=== PATIENT | female | born 1985 | race Two or more races ===

== ENCOUNTER → 2022-12-03 13:57 | Outpatient (BNVA) | payer OTHER, SELFPAY | PROVIDERS: PCP Internal Medicine; Visit Provider Physician Assistant Surgical ==

== ENCOUNTER 2022-12-30 13:57 | Outpatient (AMB) | payer OTHER, SELFPAY ==
--- NOTE | 2022-12-30 14:14 | MHC.OFFVISWM ---
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 She heard about our program from a friend. Her goal is to lose weight and achieve a healthy lifestyle. She reports first being concerned about her weight lifelong, highest weight to date was 243. Current weight is 231 pounds with a BMI of 40.3. She has tried multiple methods of weight loss including fad diets, exercise without permanent results. She lives with her and children. She currently does not work. Hx of multiple blood clots, first after a trauma 13 years ago, then 4 more times over the years including a clot while taking lovenox. She did undergo righht total hip replacement in July of this year with lovenox bridge without clotting. She is followed by hematology Dr Oscar at [facility]. She wakes at:?7 am, and goes to bed at?10 pm. Dinner is at 5 pm. Breakfast: skip or HB eggs AM snack: nuts and chips Lunch: raw veg w cottage cheese and mustars, air fried sausages PM snack: nuts and chips Dinner: fish, veg, brown rice, quinoa, chicken After dinner: chocolate, chips Other snacks: divehi ice Liquids: 120 oz water, no soda, no juice Alcohol/marijuana/tobacco intake: none Exercise: walking outside, 45 minutes, gym membership at [employer] GERD score: 10 POLYL score: 0 ESS score: 7 QOL score: 97 PFSH Surgical History History of right hip replacement Hx of section Family History Mother No problems noted. Father No problems noted. Sister Thyroid disease Brother No problems noted. Brother No problems noted. Son No problems noted. Son No problems noted. Daughter No problems noted. Daughter Epilepsy Social History Alcohol intake: never Patient Tobacco Use Status: Never used Tobacco Review of Systems Const All systems reviewed & are unremarkable except as noted in HPI and below Physical Exam Vital Signs: Last Vital Signs Temp 97.8 F 12/30/22 14:18 Pulse 78 12/30/22 14:18 BP 120/66 12/30/22 14:18 Pulse Ox 99 12/30/22 14:18 Oxygen Delivery Method Room Air 12/30/22 14:18 BMI result Body Mass Index 40.3 Const General: cooperative, healthy appearing and no acute distress Orientation/consciousness: patient oriented x3 HEENT Head: Yes normal to inspection Ears: hearing grossly normal bilaterally General nose exam: Normal external nose present Face and sinus: Yes normal facial exam Eyes General: appearance normal, both eyes and all related structures Resp Effort & Inspection: normal respiratory effort Auscultation: clear to auscultation bilaterally Cardio Rate: regular rate Rhythm: regular rhythm Heart sounds: S1 normal heart sound present and S2 normal heart sound present GI Inspection: Yes normal to inspection, No distended and Yes obesity Palpation (GI): Soft to palpation, nontender and no guarding Auscultation: normal bowel sounds Skin General skin exam: no rashes or lesions noted Neuro General: patient oriented x3 Extrem General: No edema Psych Appearance: grossly normal Mental Status: mental status grossly normal Speech and movement: Normal speech and movement present Affect: normal affect Attitude: cooperative Assessment & Plan Assessment & Plan (1) Morbid obesity: Code(s): E66.01 - Morbid (severe) obesity due to excess calories Plan: This is a?37 yo female who will start our SWL program to prepare for bariatric surgery.? Blood work, h pylori , CXR, ECG, Abd US and UGI have been ordered. She is being scheduled for RD and BH initial consultations. She will start SWL classes and watch the first three videos before her next appointment. ? Adequate sleep of 7-8 hours per night discussed, awakening at 7 am and going to bed at 10 pm ? Purchase body composition analyzer scale (Charlee nicolas or Donovan recommended) and check weight weekly. The best time to do this is first thing in the morning after going to the bathroom. 1. Nutritional counseling: Be sure to careful read the number of scoops per shake Start with 3 Premier Protein shakes ([employer], [employer], [employer]), (1 scoop in 8 oz low fat unsweetened almond milk or water each) First shake at 8am-10am, Second shake at 12am-2pm 1 protein bar (Fulfil bars at [employer], [facility], or [employer]) at 3pm-5pm. Dinner at 5 pm (8 forks of protein and 8 forks of salad/vegetables). Meal to include lean meat (beef, fish, pork, turkey, chicken), cooked vegetables or a salad with olive oil and/or fruits (berries, pears, apples, kiwi). Avoid salt, breads, potatoes, rice, pasta, desserts. Another shake with 1 scoop in 8 oz unsweetened almond milk at 7pm-9pm. Try to drink 64 oz of water daily and avoid soda and juices. ?2. Each shake would be drunk slowly, like coffee in a period of 2 hours. ?3. Cut each bar in 4 pieces and eat each piece in 30 min ?to make each bar last 2 hours. ?4. I emphasized the importance of measuring accurately the food portion and measure it carefully when serving the food on the plate ?5. The meal portions include 8 full-size forks of meat and 8 full-size forks of salad. You always eat the meat portion but you can replace up to half of the forks of salad/vegetables with rice, potatoes or pasta, or a fruit ?if you like. The less you do it the better weight loss will be. ?6. One full-size fork is what can be scooped on the fork without falling aside and not what can be bit with the fork. Use regular forks like those you find in a typical restaurant. ?7.? Please send me weight measurements as soon as possible and then once a week. Always include your diet and exercise plan. Alternatively come weekly at the office for weight checks and send me the measurements. ?8. Exercise counseling: Begin by watching a stretching for beginners video. Start slowly and begin to stretch your muscles. You should do this before and after each exercise session to prevent injury. Please go to [employer] [facility] gym near your home. Ask the food processing plant manager or one of the trainers how to use the machines if you are unfamiliar with them. Start elliptical with a resistance of 2. Increase resistance by 1 every 3 min to your most comfortable resistance with a max resistance of 8. Reduce the resistance by 1 every 3 minutes back down to 2 and repeat cycles for 300 calories. Alternatively, start treadmill with a speed of 3.0 and incline of 0, increasing incline by 1 every 3 minutes to the highest comfortable level (max 6 for now) then decrease in the same fashion. Repeat process to a goal of 300 calories. Goal of 2000 calories burned or more weekly. You may also consider use of the stationary bike. The easiest would be to chose the fat-burn or interval training program on the machine and do this until you reach the 300 calorie goal. Alternatively, you can manually adjust the resistance in a similar fashion as mentioned above, (resistance of 2-8 with a goal speed of 12 mph). Tracking calories is essential. 9. Alternatively start walking outside daily, tracking calories with a goal of 300 calories per day, daily. You can download the [employer] which can track your time, distance and calories while walking outside. You press start in the ju[employer] when you start and then stop when you are finished. 10.? It is important to avoid for at least 18 months postoperatively and it has been discussed at the information session 11. Please get labs, EKG and chest X-Ray within 1 week. 12. Discussed and answered all questions regarding?obtained consent to participate in the [facility]?Registry. 13. Please follow the diet plan exactly, without any change. If you do not like something about the plan or you feel hungry, you need to communicate with me so I can help you revise the plan. You should not change the plan yourself. Text me at [phone] 14. Goal is to lose at least 12 pounds in the first month 15. Goal is to lose 10% of your weight before surgery, which is about 23 lbs. Ultimate weight goal: 208 lbs before surgery 16. Please contact your bar tender at [facility], Dr Oscar and have her fax over her notes to our office at [phone] Patient is morbidly obese and is not considered stable at this time.?I spent a total of 70 minutes reviewing/updating records, examining the patient and counseling the patient on weight management as detailed above. (2) Hypercoagulable state: Code(s): D68.59 - Other primary thrombophilia Plan: Get notes from her bar tender Dr Oscar Orders: Orders Vitamin B12 and Folate Today E66.01 - Morbid (severe) obesity due to excess calories Comprehensive Met. Panel Today E66.01 - Morbid (severe) obesity due to excess calories C Reactive Protein Today E66.01 - Morbid (severe) obesity due to excess calories Ferritin Today E66.01 - Morbid (severe) obesity due to excess calories Hemoglobin A1c Today E66.01 - Morbid (severe) obesity due to excess calories Insulin Today E66.01 - Morbid (severe) obesity due to excess calories IRON PROFILE Today E66.01 - Morbid (severe) obesity due to excess calories Lipid Panel Today E66.01 - Morbid (severe) obesity due to excess calories PTHI Today E66.01 - Morbid (severe) obesity due to excess calories TSH reflex Free T4 Today E66.01 - Morbid (severe) obesity due to excess calories Vitamin A Today E66.01 - Morbid (severe) obesity due to excess calories Vitamin B1 Today E66.01 - Morbid (severe) obesity due to excess calories Vitamin D 25-OH Total Today E66.01 - Morbid (severe) obesity due to excess calories Zinc Today E66.01 - Morbid (severe) obesity due to excess calories ECG 12 lead EKG Today E66.01 - Morbid (severe) obesity due to excess calories FL upper GI w air Today E66.01 - Morbid (severe) obesity due to excess calories Complete Blood Count Auto Diff Today E66.01 - Morbid (severe) obesity due to excess calories H Pylori Breath Test Today E66.01 - Morbid (severe) obesity due to excess calories US abdomen comp w elastography Today E66.01 - Morbid (severe) obesity due to excess calories XR chest 2V Today E66.01 - Morbid (severe) obesity due to excess calories Referrals Behavioral Health Referral E66.01 - Morbid (severe) obesity due to excess calories Nutrition/Dietitian Referral E66.01 - Morbid (severe) obesity due to excess calories Coding Level of Care Code New Pt Level 5 (20032) Diagnoses Morbid obesity E66.01 Hypercoagulable state D68.59 Time Spent (min) 70
[2022-12-30 14:18] VITALS: BP 120/66; PULSE 78; TEMP 36.6; O2SAT 99; BMI 40.3
== END 2022-12-30 15:28 | disposition home or self-care (01) ==
PROVIDERS: PCP Internal Medicine; Visit Provider Physician Assistant Surgical
DX: E66.01 Morbid (severe) obesity due to excess calories (principal); Z68.41 Body mass index [BMI] 40.0-44.9, adult; D68.59 Other primary thrombophilia
CPT/HCPCS: 99205

== ENCOUNTER → 2022-12-30 13:57 | Outpatient (BNVA) | payer OTHER, SELFPAY | PROVIDERS: PCP Internal Medicine; Visit Provider Physician Assistant Surgical | DX: E66.01 Morbid (severe) obesity due to excess calories (principal); D68.59 Other primary thrombophilia; Z68.41 Body mass index [BMI] 40.0-44.9, adult | CPT/HCPCS: 99202 ==

== ENCOUNTER 2023-01-14 09:43 | Outpatient (REF) | payer OTHER, SELFPAY ==
--- NOTE | ~2023-01-14 | XR_ITS ---
EXAMINATION: XR CHEST 2 VIEW CLINICAL INFORMATION: Morbid obesity COMPARISON: None TECHNIQUE: PA and lateral views of the chest obtained. FINDINGS: The lungs are clear. There are no pleural effusions. The cardiomediastinal silhouette is normal. XR/XR chest 2V IMPRESSION: No active cardiopulmonary disease.
--- NOTE | 2023-01-14 09:54 | ECG_ITS ---
Test Reason : CP Blood Pressure : / mmHG Vent. Rate : 070 BPM Atrial Rate : 070 BPM P-R Int : 170 ms QRS Dur : 090 ms QT Int : 408 ms P-R-T Axes : 041 -06 016 degrees QTc Int : 440 ms Normal sinus rhythm Normal ECG No previous ECGs available Referred By: William Gutiérrez Electronically Signed By:GRANT SCHROEDER
[2023-01-14 10:19] LABS: MANUAL DIFF FLAG NO
[2023-01-14 10:38] LABS: Basophils Absolute Auto 0.1 X10*3/uL (0.0-0.2); Basophils Percent Auto 1.3 % (0-2); Eosinophils Absolute Auto 0.1 X10*3/uL (0.0-0.4); Eosinophils Percent Auto 1.3 % (0-4); Hematocrit 39.6 % (37.0-47.0); Hemoglobin 13.5 g/dl (12.0-16.0); Imm Gran Abs Auto 0.01 X10*3/uL (0.00-0.03); Imm Gran Pct Auto 0.3 % (0.0-0.4); Lymphocytes Absolute Auto 1.6 X10*3/uL (1.2-4.9); Lymphocytes Percent Auto 41.5 % (20-40); Mean Corpuscular HGB Conc 34.1 g/dl (31.0-35.0); Mean Corpuscular Hemoglobin 31.6 pg (27.0-33.0); Mean Corpuscular Volume 92.7 fL (80.0-98.0); Monocytes Absolute Auto 0.3 X10*3/uL (0.1-1.2); Monocytes Percent Auto 7.6 % (2-11); Neutrophils Absolute Auto 1.9 x10*3/uL (2.0-8.3); Platelet Count 282 X10*3/uL (160-400); Red Blood Count 4.27 X10*6/uL (4.20-5.50); Red Cell Distribution Width 12.6 % (11.0-16.0)
[2023-01-14 10:50] LABS: Estimated Average Glucose 103 mg/dL; Hemoglobin A1c % 5.2 %
[2023-01-14 11:13] LABS: Alanine Aminotransferase 8 U/L (0-31); Albumin Level 4.5 g/dL (3.5-5.0); Alkaline Phosphatase 74 U/L (39-117); Anion Gap 12 (12-20); Aspartate Amino Transferase 15 U/L (5-31); Bilirubin Total 0.7 mg/dL (0.0-1.0); Blood Urea Nitrogen 15 mg/dL (9-16); C Reactive Protein 0.35 mg/dL (< or = 0.50); Calcium 9.7 mg/dL (8.4-10.2); Carbon Dioxide 28 mmol/L (22-29); Chloride 104 mmol/L (96-108); Cholesterol 222 mg/dL; Estimated Glomerular Filt Rate > 60; Glucose Random 98 mg/dL (60-115); HDL Cholesterol 32 mg/dL; Iron 67 mcg/dL (30-160); LDL Cholesterol Calculated 160 mg/dl; Percent Iron Saturation 23 % (15-50); Sodium 140 mmol/L (135-145); Total Iron Binding Capacity 292 mcg/dL (228-428); Total Protein 7.9 g/dL (6.5-8.0); Triglycerides 152 mg/dL; Unsaturated Iron Binding 225 ug/dL
[2023-01-14 11:44] LABS: Ferritin 69 ng/mL (10-122); TSH reflex Free T4 3.19 uIU/mL (0.32-4.0); Vitamin D 25-OH Total 23.5 ng/mL (>30)
[2023-01-14 11:45] LABS: Folate 9.1 ng/mL (> or = 4.0); Vitamin B12 279 pg/mL (200-900)
[2023-01-14 11:54] LABS: Insulin 14 uU/mL (2-29)
[2023-01-16 23:34] LABS: Calcium (PTHI) 9.6 mg/dL (8.6-10.2); PTHI 31 pg/mL (16-77)
[2023-01-17 18:28] LABS: Zinc 83 mcg/dL (60-130)
[2023-01-19 11:59] LABS: Vitamin B1 6 nmol/L (8-30)
[2023-01-20 04:19] LABS: Vitamin A 61 mcg/dL (38-98)
[2023-01-22 14:36] LABS: H Pylori Breath Test Negative (Negative)
== END 2023-01-14 09:44 | disposition home or self-care (01) ==
LOC: HO.LAB 09:43
PROVIDERS: PCP Internal Medicine; Visit Provider Physician Assistant Surgical
DX: E66.01 Morbid (severe) obesity due to excess calories (principal)
CPT/HCPCS: 36415; 71046; 80053; 80061; 82306; 82607; 82728; 82746; 83013; 83036; 83525; 83540; 83970; 84425; 84443; 84590; 84630; 85025; 86140; 93005; 97802; 99211

== ENCOUNTER 2023-01-14 10:31 | Outpatient (AMB) | payer OTHER, SELFPAY ==
--- NOTE | 2023-01-14 10:28 | A.OFFVIS_ITS ---
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 She started last week. She had CUBE MACHINE TENDER appt, then went on vacation. started when she got back. cauliflower rice, fish, salmon, chicken - picky about meat, mostly likes seafood. Exercise: none yet SWL online classes: completed, scored very well. reviewed. Previous weight loss methods attempted IF, keto, exercise. lost a few pounds, then would stop seeing results Dietary counseling reduction Who buys your food self Who prepares/cooks your food self Meal frequency regular: dinner and snacks and irregular: breakfast and lunch Lifestyle Reads food labels Yes Food frequency Dairy: daily, Fruit: daily, Vegetables: daily, Grains/pasta/breads/cereal (carbs): daily, Meats/poultry/fish (protein): daily, Meat substitutes/nuts/seeds/legumes: daily (snacked on nuts ), Processed foods/meats: daily, Water: daily, Soda: never, Juice: never and Coffee: several times weekly Diagnosis Nutrition problem #1 overweight/obesity As related to (etiology) #1 excess energy intake and physical inactivity As evidenced by (sign/symptom) #1 high BMI Monitoring/Goals Nutrition problem monitoring total energy intake, level of knowledge/skill, total PRO intake, total CHO intake and weight Outcome progress progressing Learning/Education Stages of change action Educational materials provided Yes Most Recent Diabetes Results: Cholesterol 222 mg/dL 01/14/23 HDL Cholesterol 32 mg/dL 01/14/23 Triglycerides 152 mg/dL 01/14/23 Creatinine 0.92 mg/dL (0.5-1.4) 01/14/23 Blood Urea Nitrogen 15 mg/dL (9-16) 01/14/23 Sodium 140 mmol/L (135-145) 01/14/23 Potassium 4.0 mmol/L (3.3-5.1) 01/14/23 Chloride 104 mmol/L (96-108) 01/14/23 Carbon Dioxide 28 mmol/L (22-29) 01/14/23 Calcium 9.7 mg/dL (8.4-10.2) 01/14/23 AST 15 U/L (5-31) 01/14/23 ALT 8 U/L (0-31) 01/14/23 Total Protein 7.9 g/dL (6.5-8.0) 01/14/23 Albumin 4.5 g/dL (3.5-5.0) 01/14/23 PFSH Surgical History History of right hip replacement Hx of section Family History Mother No problems noted. Father No problems noted. Sister Thyroid disease Brother No problems noted. Brother No problems noted. Son No problems noted. Son No problems noted. Daughter No problems noted. Daughter Epilepsy Social History Alcohol intake: never Patient Tobacco Use Status: Never used Tobacco Assessment & Plan Assessment & Plan (1) Morbid obesity: Code(s): E66.01 - Morbid (severe) obesity due to excess calories Patient Instructions: pt will be seen again to offer support and guidance if needed. will likely be cleared if staying consistent . f/u 02/25 11am video Coding Level of Care Code Nutr Indiv Intake (67442) Diagnoses Morbid obesity E66.01 Time Spent (min) 30
== END 2023-01-14 11:10 | disposition home or self-care (01) ==
PROVIDERS: PCP Internal Medicine; Visit Provider Dietitian, Registered
DX: E66.01 Morbid (severe) obesity due to excess calories (principal)

== ENCOUNTER 2023-01-23 08:04 | Outpatient (AMB) | payer OTHER, SELFPAY ==
--- NOTE | 2023-01-23 10:53 | MHC.OFFVISWM ---
Intake VS Expanded 01/23/23 11:14 Height 5 ft 3.5 in Weight 227 lb BMI 39.6 Body Fat 118 Body Fat Percentage 52 Free Fat Mass 109.2 Visceral Mass 21 Water Mass 74.9 Intake Visit Reasons: TV Follow Up/William Allergies No Known Allergies Allergy (Verified 01/23/23 10:53) Medication List - Last Reconciled 01/23/23 by Malik Pollard MD albuterol sulfate 90 mcg/actuation 2 puffs inhalation Q6H PRN cholecalciferol (vitamin D3) 125 mcg PO DAILY 90 days cyanocobalamin (vitamin B-12) 500 mcg PO DAILY 90 days rivaroxaban (Xarelto) 10 mg PO DAILY thiamine HCl (vitamin B1) 100 mg PO DAILY 90 days HPI TV Follow Up/William HPI Details Start time: 10.42am, End time: 11.29am ?I spent 42 minutes speaking with the patient on the phone plus an additional 5 minutes reviewing and updating records for a total of 47 minutes HPI Comments History of Present Illness Details Overall weight loss: 4.6lbs, or 2% TBWL Is doing 2 Premier Protein shakes (1 scoop in 8 oz low fat unsweetened almond milk or water each) at 8am-10am, 12pm-2pm 1 protein bar (Ful[employer] bars) at 3pm-5pm, dinner at 5 pm (8 forks of protein and 8 forks of salad/vegetables) and one more shake at 7pm-9pm Exercise: Gym x3-4/week doing treadmill for 25-30min and some weight exercises PFSH Medical History (Updated 01/23/23 @ 11:19 by Malik Pollard MD) Asthma Back pain Pulmonary embolism Surgical History History of right hip replacement Hx of section Family History Mother No problems noted. Father No problems noted. Sister Thyroid disease Brother No problems noted. Brother No problems noted. Son No problems noted. Son No problems noted. Daughter No problems noted. Daughter Epilepsy Social History Alcohol intake: never Patient Tobacco Use Status: Never used Tobacco Assessment & Plan Assessment & Plan (1) Hypercoagulable state: Code(s): D68.59 - Other primary thrombophilia (2) Asthma: Code(s): J45.909 - Unspecified asthma, uncomplicated (3) Obesity: Code(s): E66.9 - Obesity, unspecified Plan: 1. Plan for lap sleeve gastrectomy. If diaphragmatic or ventral hernias are present at time of surgery, these will be repaired laparoscopically as well. Risks and complications were discussed in detail including possible conversion to an open procedure, anastomotic leak, bleeding requiring transfusion, small bowel obstruction, , DVT and pulmonary embolism, cardiac, or pulmonary complications, as long-term complications such as anastomotic ulcer, insufficient weight loss and vitamin deficiencies. I emphasized the importance of close follow-up, adherence to instructions and good communication. 2. Change nutritional plan to 1 Premier Protein shake (1 scoop in 8 oz low fat unsweetened almond milk or water each) at 8am-10am, one bag of pea protein crisps at 11am-1pm, another Premier protein shake (1 scoop in 8oz almond milk) at 2pm-4pm, dinner at 5 pm (8 forks of protein and 8 forks of salad/vegetables) and 1 protein bar (Ful[employer] bars) at 7pm-9pm. 3. Exercise: exercise daily either at the Gym or at home. Start treadmill with an incline of 2.0 and speed of 3.0. Increase incline by 1 every 3 min to a max incline of 8.0, stay 3min at 8.0 and then return to 2.0 and repeat same steps until calorie goal is met. Goal is to burn 2000 calories per week on exercise, which means either 300 calories daily, or 400 calories 5 days per week, or 500 calories 4 days per week, or 650 calories 3 days per week. 4. Alternatively start stationary bike at a resistance level of 4.0 Increase level by 1.0 every 3 min to a max level of 10.0. Stay at this level for 3 min and then return to level 4.0 and repeat same steps until 300 calories are burned. Velocity target is 12mph and heart rate is 145 bpm. 5. Send me weight measurements weekly on Fridays (4) BMI 39.0-39.9,adult: Code(s): Z68.39 - Body mass index [BMI] 39.0-39.9, adult Orders: Orders Cardiolipin Antibodies Today D6.59 - Other primary thrombophilia C Reactive Protein Today D68.59 - Other primary thrombophilia Anti-Thrombin III Activity Today D6.59 - Other primary thrombophilia Factor V Leiden Today D68.59 - Other primary thrombophilia Lupus Anticoagulant Panel Today D6.59 - Other primary thrombophilia Protein C Activity Reflex Ag Today D6.59 - Other primary thrombophilia Protein S Activity reflex Ag Today D68.59 - Other primary thrombophilia Telehealth Telehealth Location of provider rendering services: practice address Location of patient: address on file Patient Identification confirmed using: Name, : Yes Telehealth method: voice only Patient verbally consented to treatment: Yes Patient verbally consented to billing insurance company: Yes Patient informed of any privacy concerns related to visit: Yes Minutes spent on Phone/Video with Pt.: 47 Coding Level of Care Code Tele Est Pt Level 5 (62381) Diagnoses Hypercoagulable state D68.59 Asthma J45.909 Obesity E66.9 BMI 39.0-39.9,adult Z68.39 Time Spent (min) 47
[2023-01-23 11:14] VITALS: BMI 39.6
== END 2023-01-23 11:30 | disposition home or self-care (01) ==
PROVIDERS: PCP Internal Medicine; Visit Provider Surgery
DX: E66.9 Obesity, unspecified (principal); Z68.39 Body mass index [BMI] 39.0-39.9, adult; J45.909 Unspecified asthma, uncomplicated; D68.59 Other primary thrombophilia
CPT/HCPCS: 99215

== ENCOUNTER → 2023-01-23 08:04 | Outpatient (BNVA) | payer OTHER, SELFPAY | PROVIDERS: PCP Internal Medicine; Visit Provider Surgery ==

== ENCOUNTER 2023-02-09 12:03 | Outpatient (AMB) | payer OTHER, SELFPAY ==
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
== END 2023-02-09 14:02 | disposition home or self-care (01) ==
LOC: HO.HBST 12:03
PROVIDERS: PCP Internal Medicine; Visit Provider Counselor Mental Health
DX: F43.12 Post-traumatic stress disorder, chronic (principal); E66.9 Obesity, unspecified
CPT/HCPCS: 90791

== ENCOUNTER → 2023-02-09 12:03 | Outpatient (BNVA) | payer OTHER, SELFPAY | PROVIDERS: PCP Internal Medicine; Visit Provider Counselor Mental Health ==

== ENCOUNTER 2023-02-12 07:56 | Outpatient (REF) | payer OTHER, SELFPAY ==
--- NOTE | ~2023-02-12 | US_ITS ---
EXAMINATION: US COMPLETE ABDOMEN WITH LIVER ELASTOGRAPHY CLINICAL INFORMATION: Obesity. COMPARISON: None available. TECHNIQUE: Real-time imaging of the abdominal viscera. Noninvasive ultrasound liver fibrosis assessment is performed using Kash ElastPQ point quantification shear wave elastography (2D-SWE) with a C5-2 MHz transducer. Multiple elastography samples are obtained. FINDINGS: PANCREAS: Normal. The visualized pancreatic head and body are normal in appearance. The remainder of the pancreas is obscured from visualization by the overlying bowel gas. ABDOMINAL AORTA: The proximal, middle, and distal aortic segments are normal in caliber. INFERIOR VENA CAVA: Visualized portions are normal. LIVER: The liver demonstrates normal size, contour and echogenicity. No focal lesion or intrahepatic biliary duct dilatation. The right lobe measures 16.0 cm in length. The left lobe measures 10.8 cm in length. Portal flow is towards the liver (hepatopetal). Shear wave liver elastography median stiffness is 1.31 m/s (reference: normal median stiffness is 1.3 m/s or less). IQR/median stiffness to assess sampling precision is 0.15 (reference: good quality data set is IQR/median stiffness of 0.15 or less). GALLBLADDER: Normal. The gallbladder is physiologically distended without evidence of stones, sludge, polyps, wall thickening or pericholecystic fluid. COMMON BILE DUCT: Normal in caliber measuring 0.3 cm in diameter. RIGHT KIDNEY: Normal. No hydronephrosis. No renal calculi or focal parenchymal lesions. The kidney measures 10.0 cm in maximum dimension. LEFT KIDNEY: Normal. No hydronephrosis. No renal calculi or focal parenchymal lesions. The kidney measures 11.2 cm in maximum dimension. SPLEEN: Normal. The spleen measures 13.4 cm in maximum dimension. FREE FLUID: None. US/US abdomen comp w elastography IMPRESSION: 1. There is mild splenomegaly. 2. Liver elastography: In the absence of other known clinical signs, measurements rule out compensated advanced chronic liver disease. If there are known clinical signs, further testing may be needed for confirmation. REFERENCE: Society of Radiologists in Ultrasound Liver Stiffness Thresholds (2020): LIVER STIFFNESS THRESHOLDS: *Liver Stiffness equal or less than 1.3 m/s: High probability of being normal. *Liver Stiffness less than 1.7 m/s: In the absence of other known clinical signs, rules out compensated advanced chronic liver disease. *Liver Stiffness 1.7-2.1 m/s: Suggestive of compensated advanced chronic liver disease but need further test for confirmation. *Liver Stiffness over 2.1 m/s: Rules in compensated advanced chronic liver disease. *Liver Stiffness over 2.4 m/s: Suggestive of clinically significant portal hypertension. QUALITY OF DATA SET: *IQR/Median value equal or less than 0.15 implies a quality data set. *IQR/Median value over 0.15 implies a poor quality data set. SIGNIFICANT CHANGE FROM PRIOR EXAM: Significant change if liver stiffness measurement is 10% or greater from prior exam. OTHER CONSIDERATIONS: The stage of liver fibrosis may be overestimated in the setting of acute hepatitis, liver inflammation, elevated liver function tests, hepatic vascular congestion, obstructive cholestasis, non-fasting state, and infiltrative diseases such as amyloidosis and lymphoma. In some patients with NAFLD, the liver stiffness thresholds for compensated advanced chronic liver disease may be lower. In causes other than viral hepatitis and NAFLD, liver stiffness thresholds are not well established.
--- NOTE | ~2023-02-12 | FL_ITS ---
EXAMINATION: XR FLUOROSCOPY UPPER GI WITH AIR CLINICAL INFORMATION: Preoperative bariatric. No symptoms. COMPARISON: None TECHNIQUE: Fluoroscopic air contrast upper GI examination was performed utilizing standard techniques with thin and thick barium and effervescent granules. Numerous spot images were obtained. FINDINGS: Dual and single contrast images of the esophagus demonstrate normal caliber, contour, and mucosal pattern. No evidence of stricture, mass, or ulcerations identified. Esophageal peristalsis was normal. No definite evidence of hiatus hernia identified. Minimal gastroesophageal reflux was seen during the course of the examination and on reflux views. Dual contrast and single contrast images of the stomach demonstrated normal contour and mucosal pattern without evidence of mass, ulceration, or other abnormality. Contrast freely passed into the gastric antrum and duodenal bulb without delay. Single and air-contrast images of the duodenal bulb demonstrate no abnormality. The duodenal sweep has a normal appearance, course, and mucosal fold appearance. The patient did exhibit mildly rapid transit of contrast into the small bowel and ileum. This is of uncertain etiology. The imaged jejunum, and ileum have a normal fold pattern and caliber. FLUOROSCOPY TIME: 2 minutes, 32 seconds Number of Spot Images: 32 DOSE AREA PRODUCT: 31.11 uGy-m2 (microgray-meter squared) FL/FL upper GI w air IMPRESSION: 1. Mild gastroesophageal reflux. 2. Normal-appearing esophagus, stomach, duodenal bulb, sweep, and imaged small bowel. 3. Somewhat rapid transit of contrast into the small bowel, of uncertain etiology or significance.
== END 2023-02-12 07:57 | disposition home or self-care (01) ==
LOC: HO.US 07:56
PROVIDERS: PCP Internal Medicine; Visit Provider Physician Assistant Surgical
DX: E66.01 Morbid (severe) obesity due to excess calories (principal)
CPT/HCPCS: 74246; 76705; 76981

== ENCOUNTER → 2023-02-12 07:58 | Outpatient (BNV) | payer OTHER, SELFPAY | PROVIDERS: PCP Internal Medicine; Visit Provider Radiology Diagnostic Radiology | DX: Z01.818 Encounter for other preprocedural examination (principal) | CPT/HCPCS: 74246 ==

== ENCOUNTER 2023-02-13 08:08 | Outpatient (AMB) | payer OTHER, SELFPAY ==
--- NOTE | 2023-02-13 10:11 | A.OFFVIS_ITS ---
Intake VS Expanded 02/13/23 10:27 Height 55 ft 3 in Weight 218 lb 6 oz BMI 0.3 Body Fat 108.6 Body Fat Percentage 49.7 Free Fat Mass 110 Visceral Mass 20 Water Mass 75.4 BMR 1,448 Intake Visit Reasons: TV Follow Up SWL Allergies No Known Allergies Allergy (Verified 01/23/23 10:53) HPI TV Follow Up SWL HPI Details Start time: 10.05am, End time: 10.29am ?I spent 19 minutes speaking with the patient on the phone plus an additional 5 minutes reviewing and updating records for a total of 24 minutes HPI Comments History of Present Illness Details Overall weight loss: 13lbs, or 5.61% TBWL Is doing 2 Premier protein shakes (1 scoop each in 8oz almond milk), one protein pea chip bag, one meal (8 forks of protein and 8 forks of salad or vegetables) and one Fulsil protein bar (15gr) Exercise: is doing a treadmill at home without incline for 340 calories x 5 days per week [facility] Medical History (Updated 02/13/23 @ 10:24 by Malik Pollard MD) Back pain Asthma Pulmonary embolism Surgical History History of right hip replacement Hx of section Family History Mother No problems noted. Father No problems noted. Sister Thyroid disease Brother No problems noted. Brother No problems noted. Son No problems noted. Son No problems noted. Daughter No problems noted. Daughter Epilepsy Social History Alcohol intake: never Patient Tobacco Use Status: Never used Tobacco Assessment & Plan Assessment & Plan (1) Obesity: Code(s): E66.9 - Obesity, unspecified Plan: 1. Change nutritional plan to one Premier protein shake (HALF scoop in 8oz almond milk), one more Premier protein shake (1 scoop each in 8oz almond milk), one protein pea chip bag, one meal (8 forks of protein and 8 forks of salad or vegetables) and one Fulsil protein bar (15gr) 2. Exercise: continue treadmill at home without incline but increase to 400 calories x 5 days per week, or do 340 calories 6 days per week 3. Continue to send me weight measurements weekly on Fridays (2) BMI 38.0-38.9,adult: Code(s): Z68.38 - Body mass index [BMI] 38.0-38.9, adult Telehealth Telehealth Location of provider rendering services: practice address Location of patient: address on file Patient Identification confirmed using: Name, : Yes Telehealth method: voice only Patient verbally consented to treatment: Yes Patient verbally consented to billing insurance company: Yes Patient informed of any privacy concerns related to visit: Yes Minutes spent on Phone/Video with Pt.: 24 Coding Level of Care Code Tele Est Pt Level 3 (75917) Diagnoses Obesity E66.9 BMI 38.0-38.9,adult Z68.38 Time Spent (min) 24
== END 2023-02-13 10:30 | disposition home or self-care (01) ==
LOC: HO.HBS 08:08
PROVIDERS: PCP Internal Medicine; Visit Provider Surgery
DX: E66.9 Obesity, unspecified (principal); Z68.38 Body mass index [BMI] 38.0-38.9, adult
CPT/HCPCS: 99213

== ENCOUNTER → 2023-02-13 08:08 | Outpatient (BNVA) | payer OTHER, SELFPAY | PROVIDERS: PCP Internal Medicine; Visit Provider Surgery ==

== ENCOUNTER → 2023-02-24 16:21 | Outpatient (BNVA) | payer OTHER, SELFPAY | PROVIDERS: PCP Internal Medicine; Visit Provider Counselor Mental Health | DX: Z86.59 Personal history of other mental and behavioral disorders (principal); E66.9 Obesity, unspecified ==

== ENCOUNTER → 2023-02-25 11:12 | Outpatient (BNVA) | payer OTHER, SELFPAY | PROVIDERS: PCP Internal Medicine; Visit Provider Dietitian, Registered | DX: E66.01 Morbid (severe) obesity due to excess calories (principal); Z71.3 Dietary counseling and surveillance | CPT/HCPCS: 97803 ==

== ENCOUNTER 2023-03-04 11:07 | Outpatient (REF) | payer OTHER, SELFPAY ==
[2023-03-04 14:01] LABS: C Reactive Protein < 0.10 mg/dL (< or = 0.50)
[2023-03-06 17:34] LABS: Cardiolipin IgG Ab <2.0 GPL-U/mL; Cardiolipin IgM Ab 2.5 MPL-U/mL
[2023-03-07 23:43] LABS: Anti-Thrombin III Activity 124 % normal (80-135); Protein C Activity 138 % normal (70-180); Protein S Activity rflx Tot&Fr 60 % normal (60-140)
[2023-03-10 06:53] LABS: PTT (LAC) Screen 34 sec (<=40)
[2023-03-11 02:43] LABS: Factor V Leiden NEGATIVE
== END 2023-03-04 11:08 | disposition home or self-care (01) ==
LOC: HO.LAB 11:07
PROVIDERS: Visit Provider Surgery
DX: D68.59 Other primary thrombophilia (principal)
CPT/HCPCS: 36415; 81241; 85300; 85302; 85303; 85306; 85597; 85598; 85613; 85730; 86140; 86147

== ENCOUNTER 2023-03-06 08:08 | Outpatient (AMB) | payer OTHER, SELFPAY ==
--- NOTE | 2023-03-06 11:37 | MHC.OFFVISWM ---
Intake VS Expanded 03/06/23 11:54 Height 5 ft 3 in Weight 214 lb 4 oz BMI 37.9 Body Fat % 48.5 Body Fat Mass 103.9 Fat Free Mass 110.4 Visceral Fat Rating 19 Body Water % 35.3 Body Water Mass 75.6 Basal Metabolic Rate/Score 1,451 Intake Visit Reasons: TV Follow Up SWL Allergies No Known Allergies Allergy (Verified 01/23/23 10:53) HPI TV Follow Up SWL HPI Details Start time: 11.34am, End time: 12.06pm ?I spent 27 minutes speaking with the patient on the phone plus an additional 5 minutes reviewing and updating records for a total of 32 minutes HPI Comments History of Present Illness Details Overall weight loss: 17.2lbs, or 7.43% TBWL Is doing 2 Premier protein shakes (1 scoop each in almond milk), one bag of protein crisps, one meal (not measured well). May have another bar after dinner but often she skips it Exercise: is doing the Gym x5/week for 340 calories, or a walking pad (no incline for 340 calories) [facility] Medical History (Updated 03/06/23 @ 12:00 by Malik Pollard MD) Back pain Asthma Pulmonary embolism Surgical History History of right hip replacement Hx of section Family History Mother No problems noted. Father No problems noted. Sister Thyroid disease Brother No problems noted. Brother No problems noted. Son No problems noted. Son No problems noted. Daughter No problems noted. Daughter Epilepsy Social History Alcohol intake: never Patient Tobacco Use Status: Never used Tobacco Assessment & Plan Assessment & Plan (1) Obesity: Code(s): E66.9 - Obesity, unspecified Plan: 1. Plan for lap sleeve gastrectomy including upper GI endoscopy. All tests has been completed and reviewed and the patient is cleared for the surgery. ?If diaphragmatic or ventral hernias are present at time of surgery, these will be repaired laparoscopically as well. Risks and complications were discussed in detail including possible conversion to an open procedure, anastomotic leak, bleeding requiring transfusion, small bowel obstruction, , DVT and pulmonary embolism, cardiac, or pulmonary complications, as long term acute care registered nurse complications such as anastomotic ulcer, insufficient weight loss and vitamin deficiencies. I emphasized the importance of close follow-up, adherence to instructions and good communication. So far she has proven to be an excellent communicator and very compliant with all our directions accomplishing a great weight loss. I believe that she is an excellent candidate and she is ready. 2. Continue same nutritional plan of 2 Premier protein shakes (1 scoop each in almond milk), one bag of protein crisps, one meal (8 forks of protein and 8 forks of salad or vegetables) and one Fulsil protein bar after dinner 3. Exercise: stop Gym. Start Peloton stationary bike at a resistance level of 4.0 Increase level by 1.0 every 3 min to a max level of 10.0. Stay at this level for 3 min and then return to level 4.0 and repeat same steps until 300 calories are burned. Velocity target is 12mph and heart rate is 145 bpm. Goal is to burn 2000 calories per week on exercise. 4. You can use the walking pad a few days per week for 150 calories and you can reduce those days the Peloton to 150 calories as well 5. Continue to send me weight measurements weekly on Fridays (2) BMI 37.0-37.9, adult: Code(s): Z68.37 - Body mass index [BMI] 37.0-37.9, adult Telehealth Telehealth Location of provider rendering services: practice address Location of patient: address on file Patient Identification confirmed using: Name, : Yes Telehealth method: voice only Patient verbally consented to treatment: Yes Patient verbally consented to billing insurance company: Yes Patient informed of any privacy concerns related to visit: Yes Minutes spent on Phone/Video with Pt.: 32 Coding Level of Care Code Tele Est Pt Level 4 (52624) Diagnoses Obesity E66.9 BMI 37.0-37.9, adult Z68.37 Time Spent (min) 32
[2023-03-06 11:54] VITALS: BMI 37.9
== END 2023-03-06 12:07 | disposition home or self-care (01) ==
LOC: HO.HBS 08:08
PROVIDERS: PCP Internal Medicine; Visit Provider Surgery
DX: E66.9 Obesity, unspecified (principal); Z68.37 Body mass index [BMI] 37.0-37.9, adult
CPT/HCPCS: 99214

== ENCOUNTER → 2023-03-06 08:08 | Outpatient (BNVA) | payer OTHER, SELFPAY | PROVIDERS: PCP Internal Medicine; Visit Provider Surgery ==

== ENCOUNTER 2023-03-27 10:48 | Outpatient (REF) | payer OTHER, SELFPAY | END 2023-03-27 10:49 | disposition home or self-care (01) | LOC: HO.LAB 10:48 | PROVIDERS: PCP Internal Medicine; Visit Provider Surgery | DX: Z13.89 Encounter for screening for other disorder (principal) | CPT/HCPCS: 36415; 80053; 80061; 83036; 83525; 84443; 85025; 85610; 85730; 86140 ==

== ENCOUNTER 2023-03-30 08:01 | Outpatient (AMB) | payer OTHER, SELFPAY ==
--- NOTE | 2023-03-30 09:51 | A.OFFVIS_ITS ---
Intake VS Expanded 03/30/23 10:04 Height 5 ft 3 in Weight 203 lb 2 oz BMI 36.0 Body Fat % 42.1 Body Fat Mass 85.6 Fat Free Mass 117.6 Visceral Fat Rating 10 Body Water % 41.5 Body Water Mass 84.2 Basal Metabolic Rate/Score 1,650 Intake Visit Reasons: TV Pre Op LSG 04/07/23 Allergies No Known Allergies Allergy (Verified 03/30/23 09:51) Medication List - Last Reconciled 03/30/23 by Malik Pollard MD albuterol sulfate 90 mcg/actuation 2 puffs inhalation Q6H PRN cholecalciferol (vitamin D3) 125 mcg PO DAILY 90 days cyanocobalamin (vitamin B-12) 500 mcg PO DAILY 90 days ondansetron 4 mg PO Q12H pantoprazole 40 mg PO DAILY polyethylene glycol 3350 (Miralax) 17 grams PO DAILY rivaroxaban (Xarelto) 10 mg PO DAILY sucralfate 10 mL PO BID thiamine HCl (vitamin B1) 100 mg PO DAILY 90 days HPI TV Pre Op LSG 04/07/23 HPI Details Start time: 9.44am, End time: 10.14am ?I spent 25 minutes speaking with the patient on the phone plus an additional 5 minutes reviewing and updating records for a total of 30 minutes HPI Comments History of Present Illness Details Overall weight loss: 28.4lbs, or 12.26% TBWL Is doing 2 powdered Premier (1 scoop in 8oz almond milk), one protein chip, one Fulfil protein bar and one meal (8 forks of protein and 8 forks of salad or vegetables) Exercise: Peloton 4 days per week for 400 calories [facility] Medical History (Updated 03/30/23 @ 09:54 by Malik Pollard MD) DVT (deep venous thrombosis) History of postoperative nausea and vomiting GERD (gastroesophageal reflux disease) History of headache Back pain Asthma Pulmonary embolism Surgical History History of right hip replacement Hx of section Family History Mother No problems noted. Father No problems noted. Sister Thyroid disease Brother No problems noted. Brother No problems noted. Son No problems noted. Son No problems noted. Daughter No problems noted. 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 Plan for lap sleeve gastrectomy including upper GI endoscopy. All tests has been completed and reviewed and the patient is cleared for the surgery. ?If diaphragmatic or ventral hernias are present at time of surgery, these will be repaired laparoscopically as well. Risks and complications were discussed in detail including possible conversion to an open procedure, anastomotic leak, bleeding requiring transfusion, small bowel obstruction, , DVT and pulmonary embolism, cardiac, or pulmonary complications, as mcc complications such as anastomotic ulcer, insufficient weight loss and vitamin deficiencies. I emphasized the importance of close follow-up, adherence to instructions and good communication. So far she has proven to be an excellent communicator and very compliant with all our directions accomplishing a great weight loss. I believe that she is an excellent candidate and she is ready. 2. Preop prescriptions were provided and explained the purpose of each one. Need to be purchased preop. Start Pantoprazole now as you get it from the pharmacy, 1 pill per day. Sucralfate and Zofran are for after surgery as needed. 3. Bowel prep: please do 7 packets ?of Miralax mixing each one with a an 8oz glass of water, crystal light, gatorade zero, or propel ?on 04/05/23 and the same amount on 04/06/23. Continue the protein shakes during? the bowel prep. 4. Needs to purchase 1oz medicine cups . 5. Needs to purchase Children's liquid Tylenol for postop pain control. 6. She needs to stop the XARELTO today . Avoid aspirin, motrin, Advil, Aleve, Ibuprofen, Naproxyn. Tylenol is OK. 7. She needs to purchase the Celebrate 4:1 protein shakes from the hospital's gift shop. 8. Repeat the coagulation profile blood work on Thursday04/06/23. No need to fast 9. Importance of adherence to postop folllow-up and recommendations was underscored and she understands that. 10. Stop food and bars as of tomorrow 03/31/23 and continue with 4 Premier protein shakes (ONE scoop EACH in 8oz almond milk) at 7am-9am, 10am-12pm, 1pm- 3pm, 4pm-6pm AND ONE more Premier protein shake with HALF scoop in 8oz of almond milk at 7pm-9pm 11. No soups, broths or V8 12. The patient's?medical?history has been reviewed and they are considered low risk for post op DVT and therefore DVT prophylaxis is not considered necessary. Travel after surgery was reviewed. The patient has not disclosed any travel plans during the first 30 days after surgery and they have been advised that within the first 30 days after surgery any bus, plane, train or car travel over 2 hours in duration is contraindicated due to the possibility of developing blood clots from immobility. Any travel, needs to include periods of ambulation of 10 minutes in duration every 2 hours.? Patient was instructed to discuss any plans for travel during this period with their bariatric surgeon.? 13. Please take at the day of surgery the following medications: NONE 14. Take one injection of the fondaparinux on Thursday04/03/23 and one on Thursday04/04/23 15. Stop any control pills and don't use them for one month after surgery 16. Absolutely no smoking or vaping, or marijuana until the surgery and for at least the first 4 weeks. Only nicotine patches are allowed. 17. Send me weight measurements on the day of surgery Thursday04/07/23 before you go to the hospital. 18. Avoid any steroids by mouth for any reason. 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
[2023-03-30 10:04] VITALS: BMI 36.0
== END 2023-03-30 10:15 | disposition home or self-care (01) ==
LOC: HO.HBS 08:01
PROVIDERS: PCP Internal Medicine; Visit Provider Surgery
DX: E66.9 Obesity, unspecified (principal); Z68.36 Body mass index [BMI] 36.0-36.9, adult; Z79.01 Long term (current) use of anticoagulants
CPT/HCPCS: 99499

== ENCOUNTER → 2023-03-30 08:01 | Outpatient (BNVA) | payer OTHER, SELFPAY | PROVIDERS: PCP Internal Medicine; Visit Provider Surgery ==

== ENCOUNTER 2023-04-07 06:12 | Inpatient (IN) | payer OTHER, SELFPAY ==
[2023-03-25 12:36] VITALS: BMI 36.7
[2023-03-27 11:06] LABS: MANUAL DIFF FLAG NO
[2023-03-27 12:00] LABS: Eosinophils Percent Auto 0.7 % (0-4); Hematocrit 40.8 % (37.0-47.0); Hemoglobin 14.1 g/dl (12.0-16.0); Imm Gran Abs Auto 0.01 X10*3/uL (0.00-0.03); Imm Gran Pct Auto 0.2 % (0.0-0.4); Lymphocytes Absolute Auto 1.5 X10*3/uL (1.2-4.9); Lymphocytes Percent Auto 36.6 % (20-40); Mean Corpuscular HGB Conc 34.6 g/dl (31.0-35.0); Mean Corpuscular Hemoglobin 31.4 pg (27.0-33.0); Mean Corpuscular Volume 90.9 fL (80.0-98.0); Mean Platelet Volume 10.3 fL (9.4-12.3); Monocytes Absolute Auto 0.3 X10*3/uL (0.1-1.2); Monocytes Percent Auto 7.1 % (2-11); Neutrophils Absolute Auto 2.2 x10*3/uL (2.0-8.3); Neutrophils Percent Auto 54.4 % (45-73); Platelet Count 264 X10*3/uL (160-400); Red Blood Count 4.49 X10*6/uL (4.20-5.50); White Blood Count 4.1 X10*3/uL (4.8-10.8)
[2023-03-27 12:01] LABS: INTERNATIONAL NORM RATIO 1.5 (0.9-1.1); Prothrombin Time 18.1 SEC (11.1-13.3)
[2023-03-27 12:04] LABS: Partial Thromboplastin Time 40.6 SEC (26.0-36.4)
[2023-03-27 12:17] LABS: Estimated Average Glucose 103 mg/dL; Hemoglobin A1c % 5.2 % (<6.0)
[2023-03-27 12:44] LABS: Alanine Aminotransferase 6 U/L (0-31); Albumin Level 4.5 g/dL (3.5-5.0); Alkaline Phosphatase 70 U/L (39-117); Anion Gap 14 (12-20); Aspartate Amino Transferase 15 U/L (5-31); Bilirubin Total 1.1 mg/dL (0.0-1.0); Blood Urea Nitrogen 15 mg/dL (9-16); C Reactive Protein 0.11 mg/dL (< or = 0.50); Calcium 9.5 mg/dL (8.4-10.2); Carbon Dioxide 23 mmol/L (22-29); Chloride 105 mmol/L (96-108); Cholesterol 183 mg/dL (<200); Estimated Glomerular Filt Rate > 60; Glucose Random 77 mg/dL (60-115); HDL Cholesterol 34 mg/dL (>40); LDL Cholesterol Calculated 135 mg/dL (<100); Sodium 138 mmol/L (135-145); Total Protein 7.9 g/dL (6.5-8.0); Triglycerides 73 mg/dL (<150)
[2023-03-27 13:00] LABS: Insulin 6 uU/mL (2-29); TSH reflex Free T4 2.76 uIU/mL (0.32-4.0)
--- NOTE | 2023-04-03 22:30 | MHC.SHP ---
Pre-Procedural Eval Section A Date of Service: 04/03/23 The patient is an INPATIENT: Yes The History & Physical has been completed within 30 days and I have reviewed it.: Yes Section B Chief Complaint: Obesity, unspecified Relevant Family History (Specify if Yes): No Relevant Social History: None Present Medications: None Medical History: No relevant PMH History of Previous Operations: No relevant previous surgery Allergies: Allergies Allergy/AdvReac Type Severity Reaction Status Date / Time No Known Allergies Allergy Verified 03/30/23 09:51 Review of Systems Sugical H&P ROS: Negative: Constitution, Cardiovascular, Respiratory, Neurological, Psychiatric, Hem-Onc, Allergic/Immunologic, Gastrointestinal, Genitourinary, Musculoskeletal, Integumentary, Endocrine and Eyes/Ears/Nose/Throat Exam Surgical H&P Exam: Normal: HEENT, Normal: Heart, Normal: Lungs, Normal: Extremities, Normal: Abdomen, Normal: Skin and Normal: Neurological Plan Diagnosis/Plan: Unchanged I have reviewed the history and physical and performed a pertinent physical examination on my patient. No changes have occurred unless specified. Time Spent With Patient Time: Total time managing care of this patient today ____ minutes.
--- NOTE | 2023-04-06 09:30 | HO.ANESPROP2 ---
Documented by User: Arline Townsend NP 04/06/23 09:33 HPI - Anesthesia Eval Consult details Narrative: 37yo F for Gastrectomy Sleeve-EGD, possible diaphragmatic hernia, possible ventral hernia, possible open xarelto for hx DVT/PE - on hold with arixtra bridge PONV PMFSH Active Problems Active Problems: All Active Problems (Updated 03/30/23 @ 09:54 by Malik Pollard MD) Anticoagulation monitoring, special range (Acute) BMI 36.0-36.9,adult (Acute) BMI 37.0-37.9, adult (Acute) BMI 38.0-38.9,adult (Acute) History of post traumatic stress disorder (Acute) BMI 39.0-39.9,adult (Acute) Obesity (Acute) Hypercoagulable state (Acute) Morbid obesity (Acute) Back pain (Acute) Asthma (Acute) Past Medical History Medical History DVT (deep venous thrombosis) History of postoperative nausea and vomiting GERD (gastroesophageal reflux disease) History of headache Back pain Asthma Pulmonary embolism Family History Family History Mother No problems noted. Father No problems noted. Sister Thyroid disease Brother No problems noted. Brother No problems noted. Son No problems noted. Son No problems noted. Daughter No problems noted. Daughter Epilepsy Surgical History Surgical History History of right hip replacement Hx of section Social History Social History Are you a primary career resource technician to a significant other at home: No Do you presently have visiting nurse or other home services: No Alcohol intake: never Patient Tobacco Use Status: Never used Tobacco Use of substances other than those prescribed or required for medical reasons: No Advance Directives: No Advance Directives Information Provided: No Advance Directives on File: No Recently lost weight without trying: No Eating poorly because of decreased appetite: No Nutrition Risks: No Nutritional Risk Patient : No : No Poor oral hygiene: Yes (upper bridge) Meds Allergies Allergy/AdvReac Type Severity Reaction Status Date / Time No Known Allergies Allergy Verified 03/30/23 09:51 Home Medications Medication Instructions Recorded Confirmed Last Taken Type albuterol sulfate 90 mcg/actuation 2 puff inhalation Q6H PRN 12/03/22 03/30/23 Unknown History aerosol inhaler Shortness Of Breath Or Wheezing rivaroxaban 10 mg tablet (Xarelto) 10 mg PO DAILY 12/03/22 03/30/23 Unknown History Exam Exam Date and Time: April 06, 2023 0930 Height,Weight and Vital Signs: Height 5 ft 3 in Weight 93.894 kg Pertinent Lab Results Pertinent Lab Results: Laboratory Tests 03/27/23 11:00 Blood Type A Positive Antibody Screen NEGATIVE Laboratory Tests 03/27/23 11:05 WBC 4.1 L Hgb 14.1 Hct 40.8 Plt Count 264 Sodium 138 Potassium 4.0 Chloride 105 Carbon Dioxide 23 BUN 15 Creatinine 0.84 Narrative Narrative: EKG 12/2022 Vent. Rate : 070 BPM Atrial Rate : 070 BPM P-R Int : 170 ms QRS Dur : 090 ms QT Int : 408 ms P-R-T Axes : 041 -06 016 degrees QTc Int : 440 ms Normal sinus rhythm Normal ECG No previous ECGs available Assessment and Plan Assessment Anesthesia Assessment: Chart Reviewed Documented by User: Heladio Maya MD 04/07/23 06:59 PMF Past Medical History Medical History DVT (deep venous thrombosis) History of postoperative nausea and vomiting GERD (gastroesophageal reflux disease) History of headache Back pain Asthma Pulmonary embolism Family History Family History Mother No problems noted. Father No problems noted. Sister Thyroid disease Brother No problems noted. Brother No problems noted. Son No problems noted. Son No problems noted. Daughter No problems noted. Daughter Epilepsy Family history of problems with anesthesia: No Surgical History Surgical History History of right hip replacement Hx of section History of Problems with Anesthesia: No Social History Social History Are you a primary career resource technician to a significant other at home: No Do you presently have visiting nurse or other home services: No Alcohol intake: never Patient Tobacco Use Status: Never used Tobacco Use of substances other than those prescribed or required for medical reasons: No Advance Directives: No Advance Directives Information Provided: No Advance Directives on File: No Recently lost weight without trying: No Eating poorly because of decreased appetite: No Nutrition Risks: No Nutritional Risk Patient : No : No Poor oral hygiene: Yes (upper bridge) Meds Allergies Allergy/AdvReac Type Severity Reaction Status Date / Time No Known Allergies Allergy Verified 03/30/23 09:51 Home Medications Medication Instructions Recorded Confirmed Last Taken Type albuterol sulfate 90 mcg/actuation 2 puff inhalation Q6H PRN 12/03/22 03/30/23 Unknown History aerosol inhaler Shortness Of Breath Or Wheezing rivaroxaban 10 mg tablet (Xarelto) 10 mg PO DAILY 12/03/22 03/30/23 Unknown History Exam Airway Mallampati Class: II TM Dist: >3cm Neck ROM: Full Loose/Missing/Broken Teeth: No Heart: rrr+[id number] Lungs: cta b/l Assessment and Plan Assessment Anesthesia Assessment: Anesthesia Plan Discussed Final Anesthetic Review Family History of Problems with Anesthesia: No History of Problems with Anesthesia: No NPO: Yes ASA Class: II Final Preanesthetic Review: No Changes in Pt Med Stat, Meds/Allgs Chart Reviewed, Consent Obtained/Reviewed and Anes Risks/Benef Reviewed Patient Risk: Intermediate Procedure Risk: Intermediate Assessment/Block/Sedation in SS: Assess/Block/Sedation-SS Anesthetic Plan Anesthetic Plan: GA and Agree w/ Assess. and Plan Disposition: Standard PACU
[2023-04-06 10:11] LABS: INTERNATIONAL NORM RATIO 1.1 (0.9-1.1)
[2023-04-06 10:13] LABS: Partial Thromboplastin Time 33.6 SEC (26.0-36.4)
[2023-04-07] VITALS (11 sets, daily range): BP systolic 115–143; BP diastolic 50–82; PULSE 53–85; RESP 14–18; TEMP 36.1–36.7; O2SAT 97–100; BMI 38.3
--- OUTSIDE RECORDS SUMMARY | 2023-04-07 06:15 | XMS_ITS | Continuity of Care Document ---
Author Name Unknown Organization [facility] Address [address] [place] [id number]- Care Team Providers Care Admissions Officer Name Role Phone Leonardo Persaud MD Primary Care Physician [phone] Encounter [facility] R [id number] Date(s): 07/25/22 - 08/24/22 [facility] [address] [place], [place] [address] Attending Physician: Ros Ray Admitting Physician: AdmRos ovalle Referring Physician: AdmtrRos Allergies, Adverse Reactions, Alerts No Known Allergies Immunizations Given and Recorded Vaccine Date Status Refusal Reason influenza virus vaccine, inactivated 04/11/19 Give n influenza virus vaccine, inactivated 02/10/17 Give n influenza virus vaccine, inactivated 04/09/11 Give n influenza virus vaccine, inactivated 04/22/10 Give n Measles/Mumps/Rubella Virus Vaccine 04/11/19 Given tetanus/diphtheria/pertussis, acel(Tdap) 1 06/18/10 Given pneumococcal 23-valent vaccine 04/27/10 Given 1Admin Note: vis given Medications acetaminophen 325 mg oral tablet 650 mg, By Mouth, Every 4 hours, (1-3), may give 325mg per patient preference and re-dose with 325mg within 4 hours if needed. Patient should only receive a total of 650mg of Acetaminophen every 4 hours., # 50 tablet, Refills 0, Tot. Refills 0, Main... Start Date: 02/14/21 Status: Ordered CeleBREX 200 mg oral capsule 1 capsule = 200 mg, By Mouth, Daily, # 90 capsule, 0 Refills, Maintenance, 07/04/22 6:30:00 EST, Capsule, Partial fill upon patient request if the prescription is for a schedule II opioid drug. Start Date: 07/04/22 Status: Ordered Colace Capsule 100 mg, 1, capsule, By Mouth, 2 times a day, Refills 0, Maintenance, 07/05/22 9:29:00 EST, Partial fill upon patient request if the prescription is for a schedule II opioid drug. Start Date: 07/05/22 Status: Ordered MiraLax Powder 1 pack/packet = 17 Gm, By Mouth, Daily, PRN Constipation, 0 Refills, Maintenance, 07/05/22 9:29:00 EST, Powder, Partial fill upon patient request if the prescription is for a schedule II opioid drug. Start Date: 07/05/22 Status: Ordered ProAir HFA 90 mcg/inh inhalation aerosol with adapter 1, puffs, Inhalation, Every 4 hours, PRN, # 8.5 Gm, Refills 0, Maintenance, 10/29/18 18:49:19 EDT, Aerosol Start Date: 10/29/18 Status: Ordered senna 187 mg oral tablet 1 tablet = 8.6 mg, By Mouth, Daily at bedtime, PRN as needed for constipation, 0 Refills, Maintenance, 07/05/22 9:29:00 EST, Tablet, Partial fill upon patient request if the prescription is for a schedule II opioid drug. Start Date: 07/05/22 Status: Ordered Xarelto 10 mg oral tablet 1 tablet = 10 mg, By Mouth, Daily, # 35 tablet, 0 Refills, Maintenance, 06/20/22 15:42:00 EST, Tablet, Partial fill upon patient request if the prescription is for a schedule II opioid drug. Start Date: 06/20/22 Stop Date: 07/25/22 Status: Ordered Problem List Condition Confirmation Course Effective Dates Status H ealth Status Informant Asthma Confirmed Active DVT, lower extremity Confirmed Active Previous section Confirmed Active Major Depressive Disorder, Single Episode, Severe Degree, Specified as with Psychotic Behavior Confirmed Active Other Nonspecific (Abnormal) Findings on Radiological and Other Examinations of Body Structure Confirmed 10/31/10 Active Posttraumatic Stress Disorder Confirmed Active Pulmonary Embolism and Infarction Confirmed 10/31/10 Active Pulmonary nodule 1 Confirmed 09/23/11 Active Severe obesity Confirmed Active 1Incidental finding on CT chest done for diagnosis of PE :-A 6 mm palmar nodule is seen the anterior right upper lobe. Another 7 mm nodule is seen in adjacent region more inferomediall. A 5 mm juxtapleural nodule is seen posteriorly at the left lung apex ( All these nodules are stable since 04/23/2010. Social History Social History Type Response Smoking Status Never (less than 100 in lifetime) entered on: 09/08/18 Sex Patient Care team information Care Team Personnel Name: Arline Carmona RN Position: S RN Member Role: Primary Care Nurse Name: Leonardo Persaud MD Position: Reference Physician Member Role: PCP Address: Address: [address] [place] [address] Name: Elsa Chaney RN Position: S RN Member Role: Primary Care Nurse Care Team Related Persons Name: PATRICA NGO Address: [id number] Address: home [address] [address] Name: FRANCE NGO Address: [address] Address: home [address] [address] [place] Name: CARLY NGO Address: home [address] [address] Name: FEROZ NGO Address: [address] [place] [address] Name: KATIE COOL Address: home [address] [place] [id number]
--- OUTSIDE RECORDS SUMMARY | 2023-04-07 06:15 | XMS_ITS | Continuity of Care Document ---
Author Name Unknown Organization [facility] Address [address] [place] [id number]- Care Team Providers Care Nursing Professor Name Role Phone Linda CRUZ, Marshal Floyd Primary Care Physician Encounter [facility] Date(s): 01/27/20 - 02/26/20 [facility] [address] [place] [id number] [facility] Allergies, Adverse Reactions, Alerts Substance Reaction Severity Status NKA Active Immunizations Given and Recorded Vaccine Date Status Refusal Reason influenza virus vaccine, inactivated 04/11/19 Give n influenza virus vaccine, inactivated 02/10/17 Give n influenza virus vaccine, inactivated 04/09/11 Give n influenza virus vaccine, inactivated 04/22/10 Give n Measles/Mumps/Rubella Virus Vaccine 04/11/19 Given tetanus/diphtheria/pertussis, acel(Tdap) 1 06/18/10 Given pneumococcal 23-valent vaccine 04/27/10 Given 1Admin Note: vis given Medications docusate sodium 100 mg oral tablet = 100 mg, By Mouth, 2 times a day, # 100 tablet, 0 Refills, Maintenance, 04/12/19 12:37:38 EST, Tablet Start Date: 04/12/19 Status: Ordered enoxaparin 120 mg/0.8 mL injectable solution = 120 mg, Subcutaneous Injection, Every 12 hours, # 48 mL, 0 Refills, Maintenance, 10/29/18 19:15:51 EDT, Injection Start Date: 10/29/18 Status: Ordered fluticasone-salmeterol 113 mcg-14 mcg/inh inhalation powder 0 Refills, Maintenance, 10/29/18 18:49:42 EDT Start Date: 10/29/18 Status: Ordered PrePlus oral tablet 0 Refills, Maintenance, 10/29/18 18:49:49 EDT Start Date: 10/29/18 Status: Ordered ProAir HFA 90 mcg/inh inhalation aerosol with adapter 1, puffs, Inhalation, Every 4 hours, PRN, # 8.5 Gm, Refills 0, Maintenance, 10/29/18 18:49:19 EDT, Aerosol Start Date: 10/29/18 Status: Ordered Problem List Condition Effective Dates Status Health Status Inform ant Asthma(Confirmed) Active tachycardia before the onset of labor(Confirmed) Active Previous section(Confirmed) Active Major Depressive Disorder, S samantha Episode, Severe Degree, Specified as with Psychotic Behavior(Confirmed) Active Other Nonspecific (Abnormal) Findings on Radiological and Other Examinations of Body Structure(Confirmed) 10/31/10 Active Posttraumatic Stress Disorder(Confirmed) Active Pulmonary Embolism and Infarction(Confirmed) 10/31/10 Active Pulmonary nodule(Confirmed) 1 09/23/11 Active 1Incidental finding on CT chest done [...]
--- OUTSIDE RECORDS SUMMARY | 2023-04-07 06:15 | XMS_ITS | Continuity of Care Document ---
Author Name Unknown Organization [facility] Address [address] [place] [address]- Care Team Providers Care Dewaxer Name Role Phone Marshal Mckeon MD Primary Care Physician [place] [facility] [place] - 03/31/[facility] [address] [place] [id number] [facility] Allergies, Adverse Reactions, Alerts Substance Reaction [...] 18:49:42 EDT Start Date: 10/29/18 Status: Ordered miSOPROStol 200 mcg oral tablet 4 tablet = 800 mcg, By Mouth, Once, Buccal- dissolve in cheeck, # 4 tablet, 0 Refills, Soft Stop, 03/11/20 16:27:00 EDT, Tablet, [facility] #[id number], 158, cm, 03/30/19 9:33:00 EDT, Height, 106.6, kg, 03/11/20 14:37:00 EDT, Dry Weight Start Date: 03/11/20 Status: Ordered oxyCODONE 5 mg oral capsule 1 capsule = 5 mg, By Mouth, Every 6 hours, PRN as needed for pain, # 2 capsule, 0 Refills, Acute 04/07/20 16:28:00 EST, 03/11/20 16:28:00 EDT, Capsule, [facility] #[id number], Partial fill upon patient request, 158, cm, 03/30/19 9:33:00 EDT, Heig... Start Date: 03/11/20 Stop Date: 04/07/20 Status: Ordered PrePlus oral tablet 0 Refills, Maintenance, 10/29/18 18:49:49 EDT Start Date: 10/29/18 Status: Ordered ProAir HFA 90 mcg/inh inhalation aerosol with adapter 1, puffs, Inhalation, Every 4 hours, PRN, # 8.5 Gm, Refills 0, Maintenance, 10/29/18 18:49:19 EDT, Aerosol Start Date: 10/29/18 Status: Ordered Zofran 4 mg oral tablet 1 tablet = 4 mg, By Mouth, Every 8 hours, # 12 tablet, 0 Refills, Maintenance, 03/11/20 16:27:00 EDT, Tablet, [facility] #[id number], 158, cm, 03/30/19 9:33:00 EDT, Height, 106.6, kg, 03/11/20 14:37:00 EDT, Dry Weight Start Date: 03/11/20 Status: Ordered Problem List Condition Effective Dates Status Health Status Inform ant Asthma(Confirmed) Active Previous section(Confirmed) Active Major Depressive Disorder, [...]
--- OUTSIDE RECORDS SUMMARY | 2023-04-07 06:15 | XMS_ITS | Continuity of Care Document ---
Author Name Unknown Organization [facility] Address [address] [place] [address]- Care Team Providers Care Attacher Name Role Phone Marshal Mckeon MD Primary Care Physician Encounter [facility] Date(s): 07/03/20 - 08/02/20 [facility] [address] [place] [id number] Allergies, Adverse Reactions, Alerts Substance Reaction Severity [...] Refills, Soft Stop, 03/11/20 16:27:00 EDT, Tablet, [facility] #[id number], 158, cm, 03/30/19 9:33:00 EDT, Height, 106.6, kg, 03/11/20 14:37:00 EDT, Dry Weight Start Date: 03/11/20 Status: Ordered PrePlus oral tablet 0 Refills, [...] 0 Refills, Maintenance, 03/11/20 16:27:00 EDT, Tablet, [facility] #[id number], 158, cm, 03/30/19 9:33:00 EDT, Height, 106.6, [...]
--- OUTSIDE RECORDS SUMMARY | 2023-04-07 06:15 | XMS_ITS | Continuity of Care Document ---
Author Name Unknown Organization [facility] ter Address [address] [place] [id number] Care Team Providers Care Art Educator Name Role Phone Sheri Greene MD Primary Care Physician Encounter [facility] ACCT R [id number] Date(s): 12/25/21 - 12/25/[address] [address]- Discharge Disposition: A-D/C Home Attending Physician: Mikaela Mills MD Admitting Physician: Mikaela Mills MD Referring Physician: Not on Staff, Referring MD Allergies, Adverse Reactions, Alerts No Known Allergies [...] 0, Main... Start Date: 02/14/21 Status: Ordered docusate sodium 100 mg oral capsule 100 mg, 1, capsule, By Mouth, 2 times a day, # 60 capsule, Refills 0, Tot. Refills 0, Maintenance, 02/14/21 6:57:00 EDT, Route to Pharmacy Electronically, [facility]/pharmacy #[id number], Partial fill upon patient request if the prescription is for a schedule II o... Start Date: 02/14/21 Status: Ordered ibuprofen 800 mg oral tablet 800 mg, 1, tablet, By Mouth, Every 8 hours, (4-6), may give 400mg per patient preference and re-dose with 400mg within 8 hours if needed. Patient should only receive a total of 800mg of Ibuprofen every 8 hours., # 40 tablet, Refills 0, Tot. Refills... Start Date: 02/14/21 Status: Ordered Lovenox 30 mg/0.3 mL injectable solution = 30 mg, Subcutaneous Infusion, Every 12 hours, 0 Refills, Maintenance, 12/15/20 18:30:00 EDT, Partial fill upon patient request if the prescription is for a schedule II opioid drug. Start Date: 12/15/20 Status: Ordered ProAir HFA 90 mcg/inh inhalation aerosol with adapter 1, puffs, Inhalation, Every 4 hours, PRN, # 8.5 Gm, Refills 0, Maintenance, 10/29/18 18:49:19 EDT, Aerosol Start Date: 10/29/18 Status: Ordered simethicone 80 mg oral tablet, chewable 80 mg, Chew, 3 times a day, PRN, # 90 tablet, Refills 0, Tot. Refills 0, Maintenance, Gas, 216:57:00 EDT, Route to Pharmacy Electronically, [facility]/pharmacy #[id number], Partial fill upon patient request if the prescription is for a schedule II opioid Start Date: 02/14/21 Status: Ordered Problem List Condition Effective Dates Status Health Status Inform ant Asthma(Confirmed) Active Previous section(Confirmed) Active Major Depressive Disorder, S samantha Episode, Severe Degree, Specified as with Psychotic Behavior(Confirmed) Active Obese class II(Confirmed) Active Other Nonspecific (Abnormal) Findings on Radiological [...] All these nodules are stable since 04/23/2010. Vital Signs Most recent to oldest [Reference Range]: 1 2 3 Height 160 cm (12/25/21 9:45 AM) 160 cm (12/25/21 9:05 AM) Weight 100.2 kg (12/25/21 9:45 AM) 100.2 kg (12/25/21 9:05 AM) Oxygen Saturation [94-100 %] 100 % (12/25/21 10:38 AM) 100 % (12/25/21 9:05 AM) 100 % (12/25/21 9:01 AM) Pulse Rate [55-90 bpm] 68 bpm (12/25/21 10:38 AM) 64 bpm (12/25/21 9:05 AM) 80 bpm (12/25/21:01 AM) Body Mass Index [18.5-24.99] 39.14 *>HHI* (12/25/21 9:05 AM) Blood Pressure [90-138/55-84 mm Hg] 107/74mm Hg (12/25/21 10:38 AM) 114/58mm Hg (12/25/21 9:05 AM) Respiratory Rate [16-30 br/min] 16 br/min (12/25/21 9:05 AM) Temperature [96.8-100.4 DegF] 98.3 DegF (12/25/21 10:38 AM) 98.7 DegF (12/25/21 9:05 AM) Mode of Delivery (Oxygen) Room air (12/25/21 10:38 AM) Room air (12/25/21 9:05 AM) Room air (12/25/21 9:01 AM) Blood pressure sites Arm, right (12/25/21 10:38 AM) Arm, left (12/25/21 9:05 AM) Temperature Route Oral (12/25/21 10:38 AM) Oral (12/25/21 9:05 AM) Dry Weight 100.2 kg (12/25/21 9:45 AM) 100.2 kg (12/25/21 9:05 AM) Weight Obtained Via Standing scale (12/25/21 9:05 AM) Dry Weight Obtained Via Standing scale (12/25/21 9:05 AM) Social History Social History Type Response Smoking Status Never (less than 100 in lifetime) entered on: 09/08/18 Sex
--- OUTSIDE RECORDS SUMMARY | 2023-04-07 06:15 | XMS_ITS | Continuity of Care Document ---
Author Name Unknown Organization [employer] ter Address [address] [place] [id number]- Care Team Providers Care Field Collector Name Role Phone Leonardo Persaud MD Primary Care Physician Encounter [facility] Date(s): 07/04/22 - 07/05/[address] [address] Discharge Disposition: A-Transfer VNA/Home Health Attending Physician: William Alan MD Admitting Physician: William Alan MD Referring Physician: William Alan MD Allergies, Adverse Reactions, Alerts No Known [...] 0, Main... Start Date: 02/14/21 Status: Ordered Acetaminophen Tablet 650 mg, Tablet, By Mouth, 07/05/22 1:00:00 EST Start Date: 07/05/22 Stop Date: 07/05/22 Status: Completed CeleBREX 200 mg oral capsule 1 capsule [...] opioid drug. Start Date: 07/05/22 Status: Ordered enoxaparin 40 mg/0.4 mL injectable solution 0.4 mL = 40 mg, Subcutaneous Injection, Daily, for 6 week(s), # 16.8 mL, 0 Refills, Acute 08/16/22 9:22:00 EDT, 07/05/22 9:22:00 EST, Injection, [facility], Partial fill upon patient request if the prescription is for a schedule II opioi... Start Date: 07/05/22 Stop Date: 08/16/22 Status: Ordered MiraLax Powder 1 pack/packet = 17 Gm, By Mouth, Daily, PRN Constipation, 0 Refills, Maintenance, 07/05/22 9:29:00 EST, Powder, Partial fill upon patient request if the prescription is for a schedule II opioid drug. Start Date: 07/05/22 Status: Ordered oxyCODONE 5 mg oral tablet See Instructions, PRN, 1-2 tablet By Mouth Every 4 hours, # 84 tablet, Refills 0, Tot. Refills 0, Acute 07/12/22 9:22:00 EST, Pain , Severe, 07/05/22 9:22:00 EST, Instructions Replace Required Details, Route to Pharmacy Electronically, [facility] Start Date: 07/05/22 Stop Date: 07/12/22 Status: Ordered ProAir HFA 90 mcg/inh inhalation [...] opioid drug. Start Date: 07/05/22 Status: Ordered Tramadol Tablet 100 mg, Tablet, By Mouth, Every 6 hours, PRN for Pain , Moderate, Routine, 07/04/22 11:51:00 EST Start Date: 07/04/22 Stop Date: 07/05/22 Status: Discontinued Xarelto 10 mg oral tablet 1 tablet [...] All these nodules are stable since 04/23/2010. Results Radiology Reports * Exam Date Time Procedure Performing Provider Status 07/04/22 10:28 AM Pelvis 1 or 2 Views Anastasiia Haney (Verified) Notes: (Pelvis 1 or 2 Views) Reason For Exam: osteoarthritis, right total hip replacement RESULT: Pelvis 1 or 2 Views Pelvis 1 or 2 Views Reason: osteoarthritis, right total hip replacement COMPARISON: CT dated 522. Radiographs 2010 FINDINGS: Intraoperative radiographs demonstrates right total hip arthroplasty in progress. Expected alignment of the hardware on this single view. No displaced fracture. IMPRESSION: Expected intraoperative appearance of the right hip. WSN: [id number] Ordering Physician: William Alan Dictated By: Virgilio Tomlinson MD Dictated Date/Time: 07/04/22 10:49 a Reviewed By: Virgilio Tomlinson MD Signed By: Virgilio Tomlinson MD Signed Date/Time: 07/04/22 10:49 am Transcribed By: LEXX Transcribed Date/Time: 07/04/22 10:47 am Vital Signs Most recent to oldest [Reference Range]: 1 2 3 Height 160 cm (07/05/22 6:45 AM) 160 cm (07/05/22 4:06 AM) 160 cm (07/04/22 11:42 PM) Weight 104.1 kg (07/04/22 8:00 AM) 103 kg (07/04/22 6:16 AM) Oxygen Saturation [94-100 %] 99 % (07/05/22 6:45 AM) 98 % (07/05/22 4:06 AM) 98 % (07/04/22 11:42 PM) Pulse Rate [55-90 bpm] 88 bpm (07/05/22 6:45 AM) 86 bpm (07/05/22 4:06 AM) 78 bpm (07/04/22 11:42 PM) Body Mass Index [18.5-24.99 kg/m2] 40.66 kg/m2 *>HHI* (07/04/22 8:00 AM) 40.23 kg/m2 *>HHI* (07/04/22 6:16 AM) Blood Pressure [90-138/55-84 mm Hg] 96/57mm Hg (07/05/22 6:45 AM) 95/51mm Hg (07/05/22 4:06 AM) 99/50mm Hg (07/04/22 11:42 PM) Respiratory Rate [16-30 br/min] 18 br/min (07/05/22 6:45 AM) 18 br/min (07/05/22 5:50 AM) 18 br/min (07/05/22 5:50 AM) Temperature [96.8-100.4 DegF] 98.2 DegF (07/05/22 6:45 AM) 98.2 DegF (07/05/22 4:06 AM) 98.6 DegF (07/04/22 11:42 PM) Mode of Delivery (Oxygen) Room air (07/05/22 6:45 AM) Room air (07/05/22 4:06 AM) Room air (07/04/22 11:42 PM) Blood pressure sites Arm, left (07/05/22 6:45 AM) Arm, left (07/05/22 4:06 AM) Arm, right (07/04/22 11:42 PM) Temperature Route Oral (07/05/22 6:45 AM) Oral (07/05/22 4:06 AM) Oral (07/04/22 11:42 PM) Dry Weight 104.1 kg (07/04/22 8:00 AM) 100.2 kg (07/04/22 6:16 AM) Weight Obtained Via Standing scale (07/04/22 8:00 AM) Dry Weight Obtained Via Standing scale (07/04/22 8:00 AM) Social History Social History Type Response Smoking Status Never (less than 100 in lifetime) entered on: 09/08/18 Sex Surgical pathology study * Event Display: Surgical Pathology Authored Date: Patient Name: MYLES NGO Lab Patient : 1985 (Age: 37) Collection Date: 07/04/2022 Accession Date: 07/04/2022 Sign Out Date: 07/05/2022 Tissue Source: 1:RIGHT FEMORAL HEAD Final Diagnosis: Femoral head, right, replacement: - Femoral head with degenerative changes of articular cartilaginous surface and eburnation consistent with severe osteoarthritis (gross examination). Primary Pathologist:Saud Hope MD electronically signed out by: Saud Hope MD / Chelsie Clinical History: Osteoarthritis of right hip Gross Description: Labeled right hip femoral head . Received in formalin is a 4.7 x 4.5 x 4.0 cm femoral head in continuity with 1.5 cm of femoral neck. The articular surface is bright-red and smooth to roughened with a focal area of pink, presumptive eburnation. The specimen is sectioned revealing yellow-red, trabecular bone with focal, minimal areas of izuy-jiy-lnnr, presumptive sclerosis. No sections are submitted. Gross only. (VN)* Phone #: [phone], On-Call Pathologist: [id number] Note * Event Display: Adult Preadmission Health Questionnaire Authored Date: * Taty Valdes NP: VERIFY, PERFORM, SIGN Event Display: Discharge/Transfer Note Hospital Authored Date: [id number] Patient: MYLES NGO Age: 37 years Sex: Female : 1985 Associated Diagnoses: None Author: Lucio PERERA, Zulfiya Discharge Summary Admission Date: July 04, 2022 Discharge Date: July 05, 2022 Admitting Diagnosis: Right hip osteoarthritis Discharge Diagnosis: Right hip osteoarthritis Final Diagnosis: Right hip osteoarthritis Procedure: Right total hip arthroplasty Surgeon: Dr. William Alan Past Medical History: 1. Osteoarthritis of the right hip. 2. DVTs and PEs, on multiple occasions. It sounds like at least 4 times now, but she has followed with Dr. Juen through the [facility] for the Hem/Oncology team. She states that she has come up with negative genetic testing, but is now chronically anticoagulated with Xarelto. She will be on Lovenox perioperatively for bridging and for 6 weeks postoperatively. 3. Obesity, BMI of 39. 4. Kidney stones. 5. Mild asthma. 6. Elevated obstructive sleep apnea risk by the medical team. 7. Postoperative nausea and vomiting. Orthopedics: The patient is status post right hip arthroplasty. It is anticipated that she will be discharged home today pending PT, OT clearance. The patient is doing well from a surgical standpoint. Her incision is healing well. Neurovascular status is intact. Calves are supple and nontender. Thepatient is weight bearing as tolerated. Making good progress with Physical Therapy and Occupationaltherapy. Supervision with ambulation walking 30 feet, ambulating with a walker. Pain is well controlled on her current regimen, Acetaminophen 650 mg every 6 hours, Celebrex, tramadol and oxycodone 5-10 mg every 4 hours as needed. Patient is tolerating this well. She will be sent home with a prescrip tion for this medication. Prescription: No tramadol per insurance restriction Oxycodone 5 mg tablet, 1-2 tablets every 4 hours as needed for severe pain, 7 days # 84 Hospital course: Relatively uneventful medically. Patient is voiding spontaneously. + bowel sounds. all morning bowel medications will be given in anticipation of a BM prior to discharge. No other issues. No calf tenderness. Current Medication List: Acetaminophen: 650 mg, By Mouth, Every 4 hours, (1-3), may give 325mg per patient preference and re-dose with 325mg within 4 hours if needed. Patient should only receive a total of 650mg of Acetaminophen every 4 hours. Albuterol 90 mcg/inhalation: 1 puffs, Inhalation, Every 4 hours, PRN (for wheezing) Celecoxib: 200 mg = 1 capsule, By Mouth, Daily Docusate: 100 mg = 1 capsule, By Mouth, 2 times a day Enoxaparin: 40 mg = 0.4 mL, Subcutaneous Injection, Daily Oxycodone: See Instructions, PRN (Pain , Severe), 1-2 tablet By Mouth Every 4 hours Polyethylene Glycol 3350: 17 Gm = 1 pack/packet, By Mouth, Daily, PRN (Constipation) rivaroxaban: 10 mg = 1 tablet, By Mouth, Daily. Hold for 6 weeks while on Lovenox postoperatively. Senna: 8.6 mg = 1 tablet, By Mouth, Daily at bedtime, PRN (as needed for constipation) Allergies (Active and Proposed Allergies Only) NKA (Severity: Unknown severity, Onset: Unknown) Current Labs: Last 24 Hours Basic Metabolic Panel: Hematology: Sodium: 138 mmol/L (07/05/22) Hgb: 10.8 Gm/dL (07/05/22) Potassium (POC): 4.1 mmol/L (07/05/22) Hemoglobin A1C (Monitoring): ------ Phosphorus: ------ WBC: 5.7 k/mm3 (07/05/22) Magnesium: ------ Platelets: 209 k/mm3 (07/05/22) BUN (POC) POC Cartridge: 12 mg/dL (07/05/22) INR Level: ------ Creatinine-Blood: 0.7 mg/dL (07/05/22) Creatinine Clearance: ------ Additional - Last 24 Hours Abs. NRBC: 0.0 k/mm3 (07/05/22) Anion Gap: 9 (07/05/22) Bicarbonate Level: 23 mmol/L (07/05/22) BUN: BUN (07/05/22) Chloride: 106 mmol/L (07/05/22) Creatinine, Blood: Creatinine, Blood (07/05/22) Estimated GFR Creatinine: 109 ML/MIN/1.73 M2 (07/05/22) Hct: 32.6 % (07/05/22) MCH: 30.9 pg (07/05/22) MCHC: 33.1 g/dL (07/05/22) MCV: 93.1 femtoliters (07/05/22) MPV: 10.4 femtoliters (07/05/22) Nucleated RBC (Automated): 0.0 #/100 WBC'S (07/05/22) RBC: 3.50 m/mm3 (07/05/22) RDW-SD: 43.3 femtoliters (07/05/22) DVT prophylaxis Lovenox subcutaneous injection 40 mg daily x6 weeks after which patient will resume Xarelto. Disposition: Anticipates being discharged today to home. [facility] up at [facility] on 07/18/2022 at 9 AM, patient is aware of this. The patient has an Aquacel dressing in place. She may shower with it and the dressing can be discontinued on POD 14. Discharge Plan Discharge Disposition Discharge: home with VNA. Home Health Face to Face I certify that this patient is under my care and that I or an allowed non- physician practitioner working with me, had a iidv-jy-msen encounter with the patient on this date: 07/05/2022. The encounter with the patient was in whole, or in part, for the following medical condition, whichis the primary reason for home health care: Osteoarthritis of right hip. Physical Therapy: Functional mobility training, Home exercise program to strengthen, increase ROM, Falls prevention training. Occupational Therapy: ADL Management, Fall prevention training, Energy conservation. Homebound due to: Inability to leave home without assistance/supervision, Inability to ambulate without assistance, Pain, decreased strength, and endurance, Unsteady gait, Impaired transfers, Inability to negotiate stairs. Physician Signature: Dayanna CRUZ, William Ray RN, Danni: PERFORM Event Display: Patient Education/Instruction Authored Date: [id number] Inpatient Adult Discharge Instructions [address] [id number] Name: MYLES NGO : 1985 Visit: 07/04/2022 06:08:00 Current Date: 07/05/2022 10:21 Account: [id number] Inpatient Adult Discharge Instructions We would like to thank you for allowing us to assist you with your healthcare needs. The following includes patient education materials and information regarding your injury/illness. Our entire staffstrives to provide an excellent experience for our patients and their families. PLEASE ENSURE YOU FOLLOW-UP PER THE INSTRUCTIONS BELOW! ?? YOUR OPINION IS IMPORTANT TO US! Please complete the survey you may receive by mail or email. Your feedback will be used to make improvements to the healthcare experiences of our patients and their families. Surveys are administered by [employer]. ?? If further treatment with your primary care physician or another doctor is recommended, it is important for you to keep the appointment. Call your primary care physician or return to the Emergency Department immediately if your condition worsens, fails to improve, or new symptoms develop. If you need to find a doctor, you can call [facility] for a referral at [phone] or toll free at [phone]) or log in to [email or web address].. ?? You can view and manage your care through the patient portal or by using a health care juarez of your choosing. [employer] is a website that allows you to securely view your medical information including your hospital discharge summary, office visit summaries, medications and follow-up visits. You can also request appointments, renew medications, and request access to your medical information using a health care juarez of your choosing, or just ask a question. You can enroll at [email or web address] or register during your next office visit. You have been discharged from [facility], Patient Care Unit: SW7. If you have any questions regarding these instructions after you leave, please call us and we will be happy to assist you. [facility] Your Care Team Attending Physician Dayanna CRUZ, William Laureano Consulting Providers Dayanna CRUZ, William Laureano Discharging Providers Taty Valdes NP Reason for Admission RIGHT HIP OA [id number] Your Diagnosis Osteoarthritis of right hip Tests Performed Below is a partial list of the tests performed during your hospitalization. You may have had other tests and procedures not included in this list. Please discuss all test results with your provider. Beta HCG Serum (Females Only) BUN CBC Creatinine Electrolytes XR Pelvis 1 or 2 Views Primary Care Provider Leonardo Persaud MD Advance Directive Health Care Proxy on File Yes - Health Care Proxy Discharge Vitals Temperature: 98.2 DegF Height: 160 cm Pulse Rate: 88 bpm Weight: 104.1 kg Respiratory Rate: 18 br/min Body Mass Index:??40.66 kg/m2??Critical Systolic Blood Pressure: 96 mm Hg Body surface area: 2.15 Diastolic Blood Pressure: 57 mm Hg ?? Oxygen Saturation: 99 % ?? Studies Pending All tests and labs ordered during this hospital stay have been completed unless listed below. Please discuss all pending results with your provider listed above in these instructions. ?? BUN CBC Creatinine Electrolytes Pathology Tissue Request () What to do next Instructions From Your Doctor Discharge Orders You Need to Schedule the Following Appointments Follow Up with??[facility] When?? Why: Follow Up Appointments ?? 07/18/22 at 9am ?? 08/19/22 at 1pm Where: [address] [place] [address] [address] [place] [address]- Discharge Medications MYLES NGO :1985 Visit Date:07/04/2022 Medications: Please continue your medications until treatment is completed or stopped by your provider. Medications not listed below should be discontinued. Discuss any questions related to medications with your provider. What How Much When Instructions Next Dose New Docusate (Colace Capsule) 100 Milligram Oral Twice a day 8pm New Enoxaparin (enoxaparin 40 mg/ 0.4 mL injectable solution) 0.4 Milliliter Subcutaneous Injection Daily Duration: 6 week(s) Pickup at [facility] 3 8am on 07/05 New Oxycodone (oxyCODONE 5 mg oral tablet) See instructions 1-2 tablet By Mouth Every 4 hours ?? Pickup at [facility] 3 As needed, do not take while taking tramadol New Polyethylene Glycol 3350 (MiraLax Powder) 17 gram Oral Daily as needed for Constipation As needed New Senna (senna 187 mg oral tablet) 1 tab(s) Oral Daily at Bedtime as needed for as needed for constipation As needed Unchanged Acetaminophen (acetaminophen 325 mg oral tablet) 650 Milligram Oral Every 4 hours (1-3), may give 325mg per patient preference and re-dose with 325mg within 4 hours if needed. ?? Patient should only receive a total of 650mg of Acetaminophen every 4 hours. ?? 4pm Unchanged Albuterol (ProAir HFA 90 mcg/ inh inhalation aerosol with adapter) 1 puff(s) Inhalation Every 4 hours as needed for for wheezing As needed Unchanged Celecoxib (CeleBREX 200 mg oral capsule) 1 capsule Oral Daily 8am Unchanged rivaroxaban (Xarelto 10 mg oral tablet) 1 tab(s) Oral Daily Duration: 35 Days 5pm Pharmacy Information [facility]: [address], [place] [id number] [phone] Test Results Below is a partial list of the most recent Laboratory test results done prior to this discharge. You may have had other tests and procedures not included in this list. Please discuss all test resultswith your provider. Beta HCG Serum (Females Only) (07/04/2022) ? ?Blood - <1 mIU/mL BUN (07/05/2022) ???BUN - 12 mg/dL CBC (07/05/2022) ???WBC - 5.7 k/mm3???RBC - 3.50 m/mm3???Hgb - 10.8 Gm/dL???Hct - 32.6 %???MCV - 93.1 femtoliters???MCH - 30.9 pg???MCHC - 33.1 g/dL???Platelet Count - 209 k/mm3???RDW-SD - 43.3 femtoliters???MPV - 10.4 femtoliters???Nucleated RBC (Automated) - 0.0 #/100 WBC'S???Abs. NRBC - 0.0 k/mm3 Creatinine (07/05/2022) ???Creatinine-Blood - 0.7 mg/dL???Estimated GFR Creatinine - 109 ML/MIN/1.73 M2 Electrolytes (07/05/2022) ???Sodium - 138 mmol/L???Potassium - 4.1 mmol/L???Chloride - 106 mmol/L???Bicarbonate Level - 23 mmol/L???Anion Gap - 9 Allergies (NKA means No Known Allergies) NKA Problems Active Problems??(10) Asthma?? [id number]?? DVT, lower extremity?? Major Depressive Disorder, Single Episode, Severe Degree, Specified as with Psychotic Behavior?? Other Nonspecific (Abnormal) Findings on Radiological and Other Examinations of Body Structure?? Posttraumatic Stress Disorder?? Previous section?? Pulmonary Embolism and Infarction?? Pulmonary nodule?? Severe obesity?? Education Materials Below is the list of Educational Leaflet Providered with your Discharge Instructions. Hip Precautions?? Total Hip Replacement Discharge Instructions?? Valuables and Belongings I fully understand and agree that [facility] accepts no responsibility for all my personal property including clothing, toilet articles, radios, jewelry, dentures, hearing aids, rings, money, or any other property that is in my possession or is brought to me after admission. I understand certain valuables may be placed in a hospital safe for a short period of time. I understand that the hospital is not liable for loss or damage due to accident, fire, or other natural occurrence while said property is in the safe. I accept full responsibility for any personal property that I keep with me, and will not hold the hospital responsible in case of loss or disappearance. I acknowledge that i have been encouraged to send valuables and belongings home. ?? Review of Valuable and Belonging List: With patient Possessions released to: no belongings in pre op Date for Pt to Sign Valuables/Belongings: 07/04/22 08:00:00 ?? Valuables & Belongings ?? Clothes Electronic devices Jewelry Monetary Items Personal devices Miscellaneous Medications (Valuables) Valuables at Bedside Other: duffle bag with change of clothes Cell phone, Other: earbuds ?? Wallet ? Valuables Sent Home ? Valuables Sent to Security ? Other Discharge Information ? Case Management Discharge Plan?? Discharge Plan?? Discharge Agency Information?? Discharge Level of Care at Discharge: Homehealth/VNA Name of Agency #1: [facility] ?? Agency Nitroglycerin Nitrator Operator Batch #1: [phone] ?? Service Categories #1: Occupational Therapy, Physical Therapy ?? Service Comments #1: [facility] will contact you to set up a visit time after discharge. Please call [phone] if you don't hear from them. ?? Pulmonary Rehab Status?? Pulmonary Rehab Discharge Status?? Respiratory Rate: 18 br/min ? Common Emergency Awareness Tips IS IT A STROKE? Act FAST and Check for these signs: FACE Does the face look uneven? ARM Does one arm drift down? SPEECH Does their speech sound strange? TIME Call at any sign of stroke ?? Heart Attack Signs Chest discomfort: Most heart attacks involve discomfort in the center of the chest and lasts more than a few minutes, or goes away and comes back. It can feel like uncomfortable pressure, squeezing, fullness or pain. Discomfort in upper body: Symptoms can include pain or discomfort in one or both arms, back, neck, jaw or stomach. Shortness of breath: With or without discomfort. Other signs: Breaking out in a cold sweat, nausea, or lightheaded. Remember, MINUTES DO MATTER. If you experience any of these heart attack warning signs, call to get immediate medical attention! ?? Smoking can increase your chances of developing chronic health problems and can cause harmful effects to other family members in your house. If you smoke, you are strongly encouraged to quit. Please call [facility] at [phone] or [phone] ([phone]) or log in to [email or web address] for referrals to smoking cessation programs. ?? The National Suicide Prevention Hotline is available 22/12 if you or someone you know needs to find a reason to keep living. By calling 4-588-983-Glamit (0130) you'll be connected to a skilled, trained counselor at a crisis center in your area. INPATIENT DISCHARGE INSTRUCTIONS SIGNATURE PAGE ANDRYMARYRITOKRYSTAMYLES Location:[facility] Registration Date and Time:07/04/2022 06:08 [facility] Primary Care Physician: Cori CRUZ, Leonardo Yap, I MYLES NGO, have received the above patient education materials/instructions and have verbalized understanding. If ambulance or transport services are being used I further acknowledge being given a choice of service. ?? If you need to contact me, please call me at this number: . Patient/Medicare Sales Executive Name: Patient/Medicare Sales Executive Signature: Relationship to Patient: Witness Name/Signature: Date: * Danni Ray RN: PERFORM Event Display: Patient Education Leaflets Authored Date: [id number] Hip Precautions ?? 60288 Hip Precautions Your new hip has a limited safe range of motion. This means it can???t bend and turn as much as a natural hip. So you???ll need to move differently now than you did before surgery. This will help prevent your new hip from popping out of place (dislocating). Precautions may vary depending on the surgical technique, your surgeon's preferences, and your specific needs. Ask your surgeon if these measures apply to you. Sitting safely Your new hip has a limited range of motion. Always sit with your knees lower than or level with your hips. To protect your new hip, you must sit with your knees lower than or level with your hips. To do this, sit in chairs with high seats, preferably chairs with armrests. Placing a firm pillow on the seatof a chair can also help. ?? Following precautions You must protect your new hip by avoiding certain positions and movements. This will let your hip heal. It will also help keep it from dislocating. You may also be told to limit how much weight you put on your operated leg. You will learn how to follow precautions when lying, sitting, and standing. Flexion precaution Don???t bend over at the waist. And don???t sit with your hips lower than your knees. Adduction precaution Don???t cross your operated leg over your other leg. ALWAYS keep your thighs apart. Internal rotation precaution Don't turn your operated leg inward (pigeon toe). buffing line set up worker your feet when stepping around or turning. ?? Last Reviewed Date: 2021 ?? 0373-4134 [employer]. All rights reserved. This information is not intended as a substitute for professional medical care. Always follow your healthcare professional's instructions. ?? * Flor GARCIA, Dnani: PERFORM Event Display: Patient Education Leaflets Authored Date: [id number] Total Hip Replacement Discharge Instructions ?? 666 Total Hip Replacement Discharge Instructions ? Please read and review your Total Hip Replacement Book for detailed information ??? Your appetite may be decreased but try to maintain a good balanced diet Incision ?Your incision is closed with absorbable stitches and surgical glue. ?The dressing is waterproof. You may shower the next day. ??? Your dressing will stay on for 1-2 weeks ?You cannot go in a bath, pool, ocean, pond, diaz or jacuzzi for 6 weeks. This is to reduce your risk of infection ? You may have some numbness around the incision. This is normal and will improve with time. Some patients have numbness that does not completely go away. ??? You may have skin discoloration (yellowish or bruising) around your incision which may develop. ??? Ice and elevation ? Ice is important to help keep swelling down. ?Keep your leg elevated as much as possible. ?Ice your hip 4 times a day for 20 minutes each time. Be sure not to put the ice/ice pack directly on your skin. Use a dishtowel or something similar between your skin and the ice. ??? Marce Mobley, and Manjeet???Murray patients: The blue wedge is to be used between your knees when sleeping and sitting in a chair for the first few weeks. This keeps your hip in the proper position ? Moving ? Moving is especially important. This helps to prevent blood clots. Take short frequent walks. ? Exercises as per physical therapy ??? No driving until approved by your surgeon ??? Continue to move your foot up and down, these exercises help to prevent blood clots and help to decrease swelling in your hip. ?? When to call the Surgeon?CALL [phone] ? If you have shortness of breath or chestpain, call 911 or go to the nearest emergency department. ??? If you have drainage and/or redness around your wound. ??? If you have a fever greater than 101.5 (38.5 degrees Celsius). ??? If you havepersistent calf pain or swelling (This could be a blood clot). ??? If your pain is worsening. ? If you have any difficulty with urination or burning with urination. ?? Hospital Progress note * Arline Carmona RN: VERIFY, PERFORM, SIGN Event Display: Progress Note Hospital Authored Date: Patient: MYLES NGO Age: 37 years Sex: Female : 1985 Associated Diagnoses: None Author: Arline Carmona RN Findings Problem Related to Alteration in Musculoskeletal : Alteration in Musculoskeletal Func/new 07/05/2022 11:00 EST Alteration in Musculoskeletal Related to Mobility, Orthopedic Procedure, Total joint replacement, Other: R THR-2/3 Goals & Outcomes, Musculoskeletal Affected extremity will maintain color/motion/sensation, Pt demonstrates precautions/exercise/ transfers per protocol, Pt will ambulate safely with assistive device, Pt will demonstrate ability to participate in ADL's, Pt will report acceptable level of comfort/pain relief Interventions, Musculoskeletal Monitor patients ambulation status, monitor Color/Motion/Sensation, Assist with repositioning Goals/Interventions, Musculoskeletal Yes Musculoskeletal, Problem Start 07/04/2022 18:04 Reviewed Plan with, Musculoskeletal Patient Patient Progression, Musculoskeletal Pt progressing according to plan . Narrative/Incidental Pt POD # 1 R THR. Pt a&o x 3. Lungs clear, no SOB noted. Pt using IS with good technique. Vitals stable, denies chest pain. +BS x 4, abd soft, non-tender, non- distended, reports LBM 2/2 +flatus. Pt tolerating diet, no N/V at this time. Pt voiding c/y/u in BR. Pt OOB with 1 assist and walker, steady gait. +pp,+cms, +dorsi/plantar flexion, denies calf pain, c-boots on. Pt denies numbness/tinglin g. Pt on lovenox for dvt prophylaxis. R hip aquacel dsg c/d/i. Ice pack in place. Pt states pain 5/10, states relief with scheduled tylenol and prn 100 mg tramadol. Pt passed PT/OT this AM, ,cleared for home with services.. * Elsa Chaney RN: PERFORM, SIGN, VERIFY Event Display: Progress Note Hospital Authored Date: Patient: MYLES NGO Age: 37 years Sex: Female : 1985 Associated Diagnoses: None Author: Elsa Chaney RN Findings Problem Related to Alteration in Comfort : Alteration in Comfort/new 07/04/2022 22:25 EST Alteration in Comfort Related to Disease process, Surgery, Other: R THR-2 Goals & Outcomes: Comfort Pt will report acceptable level of comfort & pain control, Pt will state importance of adhering to pain strategy regime, Pt will demonstrate necessary skills to manage pain, Non-verbal indicators will indicate comfort/pain control Interventions Implemented: Comfort Assess pain using appropriate pain scale/tools, Assess aggravating factors & prevent them accordingly, Assess alleviating factors & promote them accordingly Goals/Interventions, Comfort Yes Comfort, Problem Start 07/04/2022 22:25 Reviewed plan with, Comfort Patient Patient Progression, Comfort Pt progressing according to plan Comfort, Problem Ongoing No . Alteration in Musculoskeletal : Alteration in Musculoskeletal Func/new 07/04/2022 22:25 EST Alteration in Musculoskeletal Related to Mobility, Orthopedic Procedure, Total joint replacement, Other: R THR-07/04 Goals & Outcomes, Musculoskeletal Affected extremity will maintain color/motion/sensation, Pt able to perform ADL's to best of ability, Pt demonstrates precautions/exercise/ transfers per protocol, Pt will ambulate safely with assistive device, Pt will be free from complications of immobility, Pt will demonstrate ability to participate in ADL's, Pt will report acceptable level of comfort/painrelief Interventions, Musculoskeletal Monitor patients ambulation status, monitor Color/Motion/Sensation, Assist with repositioning, Encourage deep breathing & coughing exercises, Obtain assistive devices as needed, Teach & Encourage use of Incentive spirometer, Teach Pt/caregiver on ADL's & adaptive equipment, Teach Pt/caregiver on exercises, Teach pt/caregiver on use of pain scale, Teach Pt /caregiver complications of immobility, Teach Pt/caregiver techniques to increase mobility, Teach Pt/caregiver on safety precautions, Incision care as ordered, Assist pt out of bed keeping legs abducted at all times, Avoid extreme internal and/or external rotation, Have pt view Total Hip Replacement video every day, Maintain hip in abduction/neutral/slight ext. rotation, Axson Pt/caregiver to Total Hip Replacement protocol, Place Total Hip vendor relationship manager at foot of bed, Instruct pt on gait training Goals/Interventions, Musculoskeletal Yes Musculoskeletal, Problem Start 07/04/2022 18:04 Reviewed Plan with, Musculoskeletal Patient Patient Progression, Musculoskeletal Pt progressing according to plan . Nursing Data Vital Signs : VITAL SIGNS SECTION 07/04/2022 18:34 EST Temperature 98.2 DegF Temperature Route Oral Pulse Rate 104 bpm H Respiratory Rate 18 br/min Systolic Blood Pressure 95 mm Hg Diastolic Blood Pressure 51 mm Hg L Blood pressure sites Arm, left Mean Arterial Pressure 66 mm Hg Pulse Pressure 44 mm Hg Oxygen Saturation 99 % Mode of Delivery (Oxygen) Room air . Narrative/Incidental Pt is a 37yo F, admitted for a R THR on 07/04/22 with . Pt is A+Ox3, VSS, +CSM, +PP, strong D/P flexion, lung sounds clear. Pt reports 3-6/10 pain, with slight relief from Tylenol q 6hr, and 100mg Tramadol q 6hr, will continue to monitor and manage pain levels. Pt has +BSx4, abd is s/nt/nd, no N/V, last BM 07/03, pt is on a regular diet and is tolerating well. Pt is OOB with 1 assist and walker, and is voiding cyu in the BR with no issues. Pt has an Aquacel dressing on R hip that is C/D/I. Will continue DVT prophylaxis with Cboots on bilaterally, and Lovenox inj daily. Discharge Information Case Management Discharge Plan : Case Management Discharge Plan Data 07/04/2022 8:57 EST Discharge Level of Care at Discharge Homehealth/VNA Name of Agency #1 [facility] Nitroglycerin Nitrator Operator Batch # Service Categories #1 Occupational Therapy, Physical Therapy Service Comments #1 [facility] will contact you to set up a visit time after discharge. Please call [phone] if you don't hear from them. Rehabilitation Discharge : Rehab Discharge Index 07/04/2022 16:40 EST Comments on treatment indicated OT to address ADL's, transfers, safety Full chart review completed Yes Hospital course PROCEDURE: Pt s/p right total hip arthroplasty with Dr. Alan on 07/04/2022. Transfer tub/shower OT Plan Supervision 07/04/2022 16:38 EST Comments on treatment indicated 37 y/o F s/p right total hip arthroplasty with Dr. Alan on 07/04/2022 WBAT R LE + THPs. SKilled PT for therex, transfers, amb c RW and stairs.Rec home c services. Walker: distance 10-20 Distance pt will ambulate >100 ft c RW Full chart review completed Yes Hospital course see comment Other findings Other findings Plan of care PT Gait training, Transfer training, Therapeutic exercise, Functional Activities, Balance training, Neuromuscular education * Zully Teran RN: PERFORM, SIGN, VERIFY Event Display: Progress Note Hospital Authored Date: Patient: MYLES NGO Age: 37 years Sex: Female : 1985 Associated Diagnoses: None Author: Zully Teran RN Findings Problem Related to Alteration in Musculoskeletal : Alteration in Musculoskeletal Func/new 07/04/2022 18:00 EST Alteration in Musculoskeletal Related to Total joint replacement Goals & Outcomes, Musculoskeletal Affected extremity will maintain color/motion/sensation, Pt demonstrates precautions/exercise/ transfers per protocol, Pt will demonstrate ability to participatein ADL's, Pt will report acceptable level of comfort/pain relief Interventions, Musculoskeletal Monitor patients ambulation status, monitor Color/Motion/Sensation, Encourage deep breathing & coughing exercises, Notify MD immediately if tissue perfusion deteriorates, Teach & Encourage use of Incentive spirometer, Teach Pt/caregiver on ADL's & adaptiveequipment, Teach pt/caregiver on use of pain scale Goals/Interventions, Musculoskeletal Yes Musculoskeletal, Problem Start 07/04/2022 18:04 Reviewed Plan with, Musculoskeletal Patient Patient Progression, Musculoskeletal Plan Initiation . Nursing Data Vital Signs : VITAL SIGNS SECTION 07/04/2022 16:16 EST Early Warning Score 0.00 07/04/2022 16:16 EST Temperature 98.0 DegF Temperature Route Oral Pulse Rate 79 bpm Respiratory Rate 18 br/min Systolic Blood Pressure 109 mm Hg Diastolic Blood Pressure 50 mm Hg L Mean Arterial Pressure 70 mm Hg Pulse Pressure 59 mm Hg Oxygen Saturation 98 % Mode of Delivery (Oxygen) Room air . Narrative/Incidental A&Ox3. AVSS. LS clear. IS/TCDB taught and encouraged. Denies CP/SOB. ABD s/nt/nd. +BS, -flatus.LBM 07/03. Voiding adequate amt cyu. Hip aquacel dsg c/d/i. OOB 1 assist with walker maintains THP with ablock in place while in bed. Pt endorses some nausea while ambulating to BR. Scop patch behind right ear. +PP, +CMS, +/=D/P. Denies calf pain/tenderness to palpation. Educated on pain district medical examiner verbalizes understanding. . . Discharge Information Case Management Discharge Plan : Case Management Discharge Plan Data 07/04/2022 8:57 EST Discharge Level of Care at Discharge Homehealth/[facility] Name of Agency #1 [facility] Nitroglycerin Nitrator Operator Batch # Service Categories #1 Occupational Therapy, Physical Therapy Service Comments #1 [facility] will contact you to set up a visit time after discharge. Please call [phone] if you don't hear from them. XR Pelvis 1 or 2 Views * BHSPowerscrihansa , CIS S: LÓPEZ Tomlinson MD, Virgilio W: VERIFY Event Display: Result: Authored Date: [id number] Pelvis 1 or 2 Views Reason: osteoarthritis, right total hip replacement COMPARISON: CT dated 522. Radiographs 2010 FINDINGS: Intraoperative radiographs demonstrates right total hip arthroplasty in progress. Expected alignment of the hardware on this single view. No displaced fracture. IMPRESSION: Expected intraoperative appearance of the right hip. WSN: [id number] Ordering Physician: William Alan Dictated By: Virgilio Tomlinson MD Dictated Date/Time: 07/04/22 10:49 a Reviewed By: Virgilio Tomlinson MD Signed By: Virgilio Tomlinson MD Signed Date/Time: 07/04/22 10:49 am Transcribed By: LEXX Transcribed Date/Time: 07/04/22 10:47 am Patient Care team information Care Team Personnel Name: Arline Carmona RN Position: S RN Member Role: Primary Care Nurse Name: Leonardo Persaud MD Position: Reference Physician Member Role: PCP Address: Address: [address] [place] [address] Name: Elsa Chaney RN Position: S RN Member Role: Primary Care Nurse Care Team Related Persons Name: FEROZ BRYANT Address: [place] [address] [address] Name: PATRICA NGO Address: [id number] Address: [place] [address] [address] [place] Name: FRANCE NGO Address: [id number] Address: home [address] [address] [place] Name: CARLY NGO Address: home [address] [address] Name: KATIE COOL Address: home [address] [address]
--- OUTSIDE RECORDS SUMMARY | 2023-04-07 06:15 | XMS_ITS | Continuity of Care Document ---
Author Name Unknown Organization [facility] Address [address] [place] [address]- Care Team Providers Care Underground Foreman Name Role Phone Leonardo Persaud MD Primary Care Physician Encounter [facility] [place] Date(s): 06/20/22 - 07/20/22 [facility] [address] [place] [address]- Attending Physician: Ros Ray Admitting Physician: Admtr, Ros Referring Physician: Admtr, Ar8 Allergies, Adverse Reactions, Alerts No Known Allergies [...] 08/16/22 9:22:00 EDT, 07/05/22 9:22:00 EST, Injection, [facility] 3, Partial fill upon patient request if [...] Reference Physician Member Role: PCP Address: Address: [address] [place] [address] Name: Elsa Chaney RN Position: S RN Member Role: Primary Care Nurse Care Team Related Persons Name: FEROZ BRYANT Address: home [address] [address] Name: PATRICA NGO Address: [address] Address: home [address] [address] [place] Name: FRANCE NGO Address: [address] Address: home [address] [address] [place] Name: CARLY NGO Address: home [address] [address] Name: KATIE COOL Address: [address] [address]
--- OUTSIDE RECORDS SUMMARY | 2023-04-07 06:15 | XMS_ITS | Continuity of Care Document ---
Author Name Unknown Organization [facility] Address [address] [place] [address]- Care Team Providers Care Sales Project Engineer Name Role Phone Sheri Greene MD Primary Care Physician Encounter [facility] Date(s): 12/19/20 - 01/18/21 [facility] [address] [place] [id number] Allergies, Adverse Reactions, Alerts Substance Reaction [...] 04/27/10 Given 1Admin Note: vis given Medications Lovenox 30 mg/0.3 mL injectable solution = 30 mg, Subcutaneous Infusion, Every 12 hours, 0 Refills, Maintenance, 12/15/20 18:30:00 EDT, Partial fill upon patient request if the prescription is for a schedule II opioid drug. Start Date: 12/15/20 Status: Ordered Pepcid 20 mg oral tablet 1 tablet = 20 mg, By Mouth, 2 times a day, 0 Refills, Maintenance, 12/15/20 18:30:00 EDT, Partial fill upon patient request if the prescription is for a schedule II opioid drug. Start Date: 12/15/20 Status: Ordered PrePlus oral tablet 0 Refills, [...]
--- OUTSIDE RECORDS SUMMARY | 2023-04-07 06:15 | XMS_ITS | Continuity of Care Document ---
Author Name Unknown Organization [facility] ter Address [address] [place] [address]- Care Team Providers Care Director Of Physiotherapy Services Name Role Phone Sheri Greene MD Primary Care Physician Encounter [facility] [id number] Date(s): 08/03/21 - 08/03/[address] [address]- Encounter Diagnosis Abdominal pain(Final) - 08/03/21 Discharge Disposition: A-D/C Home Attending Physician: Aashish Santana MD Admitting Physician: Aashish Santana MD Referring Physician: Not on Staff, Referring [...] 02/14/21 6:57:00 EDT, Route to Pharmacy Electronically, [facility]/pharmacy #[id number], Partial fill upon patient request if the [...] Gas, 216:57:00 EDT, Route to Pharmacy Electronically, [facility]/pharmacy #[id number], Partial fill upon patient request if the prescription is for a schedule II opioid drCruz Start Date: 02/14/21 Status: Ordered Problem List [...] to oldest [Reference Range]: 1 2 3 Oxygen Saturation [94-100 %] 100 % (08/03/21 2:51 PM) 99 % (08/03/21 1:23 PM) 98 % (08/03/21 10:53 AM) Pulse Rate [55-90 bpm] 60 bpm (08/03/21 2:51 PM) 63 bpm (08/03/21 1:23 PM) 63 bpm (08/03/21 12:00 PM) Blood Pressure [90-138/55-84 mm Hg] 113/59mm Hg (08/03/21 2:51 PM) 130/72mm Hg (08/03/21:23 PM) 131/74mm Hg (08/03/21 12:00 PM) Respiratory Rate [16-30 br/min] 20 br/min (08/03/21 2:51 PM) 18 br/min (08/03/21 1:23 PM) 18 br/min (08/03/21 12:00 PM) Temperature [96.8-100.4 DegF] 98.1 DegF (08/03/21 1:23 PM) 98.1 DegF (08/03/21 10:53 AM) Mode of Delivery (Oxygen) Room air (08/03/21 2:51 PM) Room air (08/03/21 1:23 PM) Room air (08/03/21 10:53 AM) Blood pressure sites Arm, left (08/03/21 2:51 PM) Arm, right (08/03/21 1:23 PM) Arm, right (08/03/21 12:00 PM) Temperature Route Oral (08/03/21 1:23 PM) Oral (08/03/21 10:53 AM) Social History Social History Type Response Smoking Status Never (less than 100 in lifetime) entered on: 09/08/18 Sex
--- OUTSIDE RECORDS SUMMARY | 2023-04-07 06:15 | XMS_ITS | Continuity of Care Document ---
Author Name Unknown Organization [facility] ter Address [address] [place] [address]- Care Team Providers Care Architecture Professor Name Role Phone Leonardo Persaud MD Primary Care Physician [phone] [place] [facility]18[place] - 07/18/[address] [address]- Attending Physician: Admtr, Ros Admitting Physician: Admtr, Ar8 Referring Physician: Admtr, Ar8 Allergies, Adverse Reactions, [...] 08/16/22 9:22:00 EDT, 07/05/22 9:22:00 EST, Injection, [facility], Partial fill upon patient request if [...] Reference Physician Member Role: PCP Address: Address: [address] [place] [address] Name: Elsa Chaney RN Position: S RN Member Role: Primary Care Nurse Care Team Related Persons Name: FEROZ BRYANT Address: home [address] [address] Name: PATRICA NGO Address: [id number] Address: home [address] [address] [place] Name: FRANCE NGO Address: [address] Address: home [address] [address] [place] Name: CARLY NGO Address: home [address] [address] Name: KATIE COOL Address: [place] [address] [place] [address]
--- OUTSIDE RECORDS SUMMARY | 2023-04-07 06:15 | XMS_ITS | Continuity of Care Document ---
Author Name Unknown Organization [facility] ter Address [address] [place] [address]- Care Team Providers Care Coating Engineer Name Role Phone Leonardo Persaud MD Primary Care Physician Encounter [facility] [place] [facility] Date(s): 07/04/22 - 08/03/[address] [address] Attending Physician: Not on Staff, Attending MD Admitting Physician: Not on Staff, Admitting MD Referring Physician: Not on Staff, Referring [...] 08/16/22 9:22:00 EDT, 07/05/22 9:22:00 EST, Injection, [facility] 3, Partial fill upon patient request [...] Reference Physician Member Role: PCP Address: Address: [address] [place] [address] Name: Elsa Chaney RN Position: S RN Member Role: Primary Care Nurse Care Team Related Persons Name: PATRICA NGO Address: [id number] Address: home [address] [address] [place] Name: FRANCE NGO Address: [address] Address: home [address] [address] [place] Name: CARLY NGO Address: home [address] [address] Name: FEROZ NGO Address: [address] [place] [address] Name: KATIE COOL Address: [address] [address]
--- OUTSIDE RECORDS SUMMARY | 2023-04-07 06:15 | XMS_ITS | Continuity of Care Document ---
Author Name Unknown Organization [facility] Address [address] [place] [address]- Care Team Providers Care Manager Diabetes Name Role Phone Sheri Greene MD Primary Care Physician Encounter [facility] Date(s): 03/19/21 - 03/19/[address] [address]- Discharge Disposition: A-D/C Home Attending Physician: Joseph Gant MD Admitting Physician: Joseph Gant MD Referring Physician: Not on Staff, Referring MD Allergies, Adverse Reactions, Alerts Substance Reaction Severity [...] 02/14/21 6:57:00 EDT, Route to Pharmacy Electronically, [facility]/pharmacy #[id number], Partial fill upon patient request if the [...] Gas, 216:57:00 EDT, Route to Pharmacy Electronically, [facility]/pharmacy #[id number], Partial fill upon patient request if the [...] recent to oldest [Reference Range]: 1 2 Height 160 cm (03/19/21 1:28 PM) 160 cm (03/19/21 1:25 PM) Weight 110 kg (03/19/21 1:28 PM) 110 kg (03/19/21 1:25 PM) Oxygen Saturation [94-100 %] 98 % (03/19/21 1:25 PM) Pulse Rate [55-90 bpm] 74 bpm (03/19/21 1:25 PM) Body Mass Index [18.5-24.99] 42.97 *>HHI* (03/19/21 1:25 PM) Blood Pressure [90-138/55-84 mm Hg] 132/ 70mm Hg (03/19/21 1:25 PM) Respiratory Rate [16-30 br/min] 20 br/mi n (03/19/21 1:25 PM) Temperature [96.8-100.4 DegF] 97.6 DegF (03/19/21 1:25 PM) Mode of Delivery (Oxygen) Room air (03/19/21 1:25 PM) Blood pressure sites Arm, left (03/19/21 1:25 PM) Temperature Route Temporal (03/19/21 1:25 PM) Dry Weight 110 kg (03/19/21 1:28 PM) 110 kg (03/19/21 1:25 PM) Weight Obtained Via Standing scale (03/19/21 1:25 PM) Dry Weight Obtained Via Standing scale (03/19/21 1:25 PM) Social History Social History Type Response Smoking Status Never (less than 100 in lifetime) entered on: 09/08/18 Sex
--- OUTSIDE RECORDS SUMMARY | 2023-04-07 06:15 | XMS_ITS | Continuity of Care Document ---
Author Name Unknown Organization [facility] ter Address [address] [place] [address]- Care Team Providers Care Seed Trucker Name Role Phone Leonardo Persaud MD Primary Care Physician [phone] Encounter [facility] Date(s): 11/25/22 - 11/25/[address] [address]- Encounter Diagnosis Chest pain(Final) - 11/25/22 Discharge Disposition: A-D/C Home Attending Physician: Richi Caro MD Admitting Physician: Richi Caro MD Referring Physician: Not on Staff, Referring [...] Exam Date Time Procedure Performing Provider Status 11/25/22 6:25 PM Chest 2 Views Frontal and Lat Kat Murray; Inez (Verified) Notes: (Chest 2 Views Frontal and Lat) Reason For Exam: Chest Pain;Other: RESULT: Chest 2 Views Frontal and Lat Chest 2 Views Frontal and Lat Hx of Present Illness: Pt reports increase in shortness of breath over past few days, has discomfort with with breathing in LLL dempsey , also reports some tightness in her chest. 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 WSN: [id number] Ordering Physician: Richi Crao Dictated By: Wliliam Arriola MD Dictated Date/Time: 11/25/22 6:39 pm Reviewed By: William Arriola MD Signed By: William Arriola MD Signed Date/Time: 11/25/22 6:39 pm Transcribed By: LEXX Transcribed Date/Time: 11/25/22 6:38 pm Vital Signs Most recent to oldest [Reference Range]: 1 2 3 Height 161 cm (11/25/22 5:50 PM) Weight 104 kg (11/25/22 5:50 PM) Oxygen Saturation [94-100 %] 98 % (11/25/22 9:53 PM) 99 % (11/25/22 7:33 PM) 98 % (11/25/22 6:57 PM) Pulse Rate [55-90 bpm] 70 bpm (11/25/22 9:53 PM) 80 bpm (11/25/22 7:33 PM) 90 bpm (11/25/22 6:57 PM) Blood Pressure [90-138/55-84 mm Hg] 131/87mm Hg (11/25/22 9:53 PM) 107/63mm Hg (11/25/22 7:33 PM) 129/83mm Hg (11/25/22 6:57 PM) Respiratory Rate [16-30 br/min] 18 br/min (11/25/22 9:53 PM) 20 br/min (11/25/22 7:33 PM) 20 br/min (11/25/22 6:57 PM) Temperature [96.8-100.4 DegF] 98.7 DegF (11/25/22 7:33 PM) 99.3 DegF (11/25/22 5:52 PM) Mode of Delivery (Oxygen) Room air (11/25/22 9:53 PM) Room air (11/25/22 7:33 PM) Room air (11/25/22 6:57 PM) Blood pressure sites Arm, left (11/25/22 9:53 PM) Arm, left (11/25/22 7:33 PM) Arm, left (11/25/22 6:57 PM) Temperature Route Oral (11/25/22 7:33 PM) Oral (11/25/22 5:52 PM) Dry Weight 104 kg (11/25/22 5:50 PM) Social History Social History Type Response Smoking Status Never (less than 100 in lifetime) entered on: 09/08/18 Sex Note * Gordo CRUZ, Richi Yap: PERFORM Event Display: Patient Education Leaflets Authored Date: [id number] Uncertain Causes of Chest Pain ?? [id number] Uncertain Causes of Chest Pain Chest pain can happen for a number of reasons. Sometimes the cause can't be determined. If your??condition does not seem serious, and your pain does not appear to be coming from your heart, your healthcare provider may recommend watching it closely. Sometimes the signs of a serious problem take more time to appear. Many problems not related to your heart can cause chest pain. These include: ??? Musculoskeletal. Costochondritis is an inflammation of the tissues around the ribs that can occur from trauma or overuse injuries, or a strain of the muscles of the chest wall. ??? Respiratory. Pneumonia, collapsed lung (pneumothorax), or inflammation of the lining of the chest and lungs (pleurisy). ??? Gastrointestinal. Esophageal reflux, heartburn, ulcers, or gallbladder disease. ??? Anxiety and panic disorders ??? Nerve compression and inflammation ??? Rare problems such as aortic aneurysm or aortic dissection (a swelling of the large artery coming out of the heart or a tear in the wall of the artery), or pulmonary embolism (a blood clot in the lungs). Home care After your visit, follow these recommendations: ??? Rest today and avoid strenuous activity. ??? Take any prescribed medicine as directed. ??? Be aware of any recurrent chest pain and notice any changes ?? Follow-up care Follow up with your healthcare provider if you don't start to feel better within 24 hours, or as advised. ?? Call 911 Call 911 if any of these occur: ??? A change in the type of pain: if it feels different, becomes more severe, lasts longer, or begins to spread into your shoulder, arm, neck, jaw or back ??? Shortness of breath or increased pain with breathing ??? Weakness, dizziness, or fainting ??? Rapid heartbeat ??? Crushing sensation in your chest ??? Coughing up more than a small amount of blood. ?? When to seek medical advice Call your healthcare provider right away if any of the following occur: ??? Cough with dark coloredsputum (phlegm) or small amount of blood ??? Fever of 100.4??F??(38??C) or higher, or as directed by your healthcare provider ??? Swelling, pain or redness in one leg ?? Last Reviewed Date: 2021 ?? 4027-1963 [employer]. All rights reserved. This information is not intended as a substitute for professional medical care. Always follow your healthcare professional's instructions. ?? Patient Care team information Care Team Personnel Name: Arline Carmona RN Position: [facility] RN Member Role: Primary Care Nurse Name: Leonardo Persaud MD Position: Reference Physician Member Role: PCP Address: Address: [address] [place] [address] [place], [place] [address] Name: Elsa Chaney RN Position: [facility] RN Member Role: Primary Care Nurse Name: Richi Caro MD Position: [facility] Resident Member Role: Admitting Physician Address: Address: [address] [place] [address] Name: Sharri Nino Position: [facility] ED TA [facility] Member Role: Resource Director Name: Tonny Sifuentes MD Position: [facility] Resident Member Role: ED Resident Address: Address: [address] [place] [address] [place] [address]- [place] Name: Danna Pinto RN Position: S ED RN W/OE and Tasks Member Role: Patient Care Provider Care Team Related Persons Name: PATRICA NGO Address: [address] Address: [address] Name: FRANCE NGO Address: [address] Address: [place] [address] [place] Name: CARLY NGO Address: [place] [address] Name: FEROZ NGO Address: home [address] [place] [address] Name: KATIE COOL Address: [place] [address]
--- OUTSIDE RECORDS SUMMARY | 2023-04-07 06:15 | XMS_ITS | Continuity of Care Document ---
Author Name Unknown Organization [facility] Address [address] [place] [address]- Care Team Providers Care Aircraft Time Clerk Name Role Phone Sheri Greene MD Primary Care Physician Encounter [facility] Date(s): 09/28/20 - 10/28/20 [facility] [address] [place] [id number] Allergies, Adverse Reactions, Alerts Substance Reaction [...] Refills, Soft Stop, 03/11/20 16:27:00 EDT, Tablet, [facility] #[id number], 158, cm, 03/30/19 9:33:00 EDT, Height, 106.6, [...] 0 Refills, Maintenance, 03/11/20 16:27:00 EDT, Tablet, [facility] #[id number], 158, cm, 03/30/19 9:33:00 EDT, Height, 106.6, [...]
--- OUTSIDE RECORDS SUMMARY | 2023-04-07 06:16 | XMS_ITS | Continuity of Care Document ---
Author Name Unknown Organization [facility] ter Address [address] [place] [address]- Care Team Providers Care Family Independence Case Manager Name Role Phone Sheri Greene MD Primary Care Physician En[place] [facility] [id number] Date(s): 03/18/21 - 03/19/[address] [address]- Discharge Disposition: A-D/C Walkout Attending Physician: Not on Staff, Attending MD [...] 02/14/21 6:57:00 EDT, Route to Pharmacy Electronically, [facility]/pharmacy #[id number], Partial fill upon patient request if the [...] Gas, 216:57:00 EDT, Route to Pharmacy Electronically, [facility]/pharmacy #[id number], Partial fill upon patient request if the [...] Most recent to oldest [Reference Range]: 1 Oxygen Saturation [94-100 %] 99 % (03/18/21 10:13 PM) Pulse Rate [55-90 bpm] 77 bpm (03/18/21 10:13 PM) Blood Pressure [90-138/55-84 mm Hg] 120/ 78mm Hg (03/18/21 10:13 PM) Respiratory Rate [16-30 br/min] 16 br/mi n (03/18/21 10:13 PM) Temperature [96.8-100.4 DegF] 98.4 DegF (03/18/21 10:13 PM) Mode of Delivery (Oxygen) Room air (03/18/21 10:13 PM) Blood pressure sites Arm, right (03/18/21 10:13 PM) Temperature Route Oral (03/18/21 10:13 PM) Social History Social History Type Response Smoking Status Never (less than 100 in lifetime) entered on: 09/08/18 Sex
--- OUTSIDE RECORDS SUMMARY | 2023-04-07 06:16 | XMS_ITS | Continuity of Care Document ---
Author Name Unknown Organization [facility] Address [address] [place] [address]- Care Team Providers Care Filtration Operator Name Role Phone Leonardo Persaud MD Primary Care Physician Encounter 07/06/22 - 07/11/22 [facility] [address] [place] [address]- Discharge Disposition: GOALS MET Allergies, Adverse Reactions, Alerts No Known Allergies [...] 08/16/22 9:22:00 EDT, 07/05/22 9:22:00 EST, Injection, [facility], Partial fill upon patient request [...] Replace Required Details, Route to Pharmacy Electronically, [facility] Start Date: 07/05/22 Stop Date: 07/12/22 [...] Reference Physician Member Role: PCP Address: Address: [address] [place] [address] Medical [place], [place] [address] Name: Elsa Chaney RN Position: S RN Member Role: Primary Care Nurse Care Team Related Persons Name: FEROZ BRYANT Address: home [address] [address] Name: PATRICA NGO Address: [address] Address: home [address] [address] [place] Name: FRANCE NGO Address: [id number] Address: home [address] [address] [place] Name: CARLY NGO Address: home [address] [address] Name: KATIE COOL Address: home [address] [address]
--- OUTSIDE RECORDS SUMMARY | 2023-04-07 06:16 | XMS_ITS | Continuity of Care Document ---
Author Name Unknown Organization [facility] ter Address [address] [place] [address]- Care Team Providers Care Gasateria Attendant Name Role Phone Sheri Greene MD Primary Care Physician Encounter [facility] Date(s): 02/11/21 - 02/14/[address] [address] Discharge Disposition: A-D/C Home Attending Physician: Sheri Greene MD Admitting Physician: Sheri Greene MD Referring Physician: Sheri Greene MD Allergies, Adverse Reactions, Alerts Substance Reaction [...] 02/14/21 6:57:00 EDT, Route to Pharmacy Electronically, [facility]/pharmacy #[id number], Partial fill upon patient request if the [...] opioid drug. Start Date: 12/15/20 Status: Ordered oxyCODONE 5 mg oral tablet 5 mg, 1, tablet, By Mouth, Every 3 hours, PRN, (7-10), # 10 tablet, Refills 0, Tot. Refills 0, Acute 02/21/21 0:00:00 EDT, Pain , Severe, 02/14/21 6:57:00 EDT, Route to Pharmacy Electronically, [facility]/pharmacy #[id number], Partial fill upon patient request if... Start Date: 02/14/21 Stop Date: 02/21/21 Status: Ordered OxyCODONE IR Tablet 5 mg, Tablet, By Mouth, Every 3 hours, PRN for Pain , Severe, (7-10), Routine, 02/12/21 13:33:00 EDT Start Date: 02/12/21 Stop Date: 02/15/21 Status: Discontinued ProAir HFA 90 mcg/inh inhalation aerosol with adapter 1, puffs, Inhalation, Every 4 hours, PRN, # 8.5 Gm, Refills 0, Maintenance, 10/29/18 18:49:19 EDT, Aerosol Start Date: 10/29/18 Status: Ordered simethicone 80 mg oral tablet, chewable 80 mg, Chew, 3 times a day, PRN, # 90 tablet, Refills 0, Tot. Refills 0, Maintenance, Gas, 216:57:00 EDT, Route to Pharmacy Electronically, [facility]/pharmacy #[id number], Partial fill upon patient request if the prescription is for a schedule II opioid . Start Date: 02/14/21 Status: Ordered Problem List [...] All these nodules are stable since 04/23/2010. Procedures Procedure Date Related Diagnosis Body Site Status delivery only; 02/11/21 C ompleted Vital Signs Most recent to oldest [Reference Range]: 1 2 3 Height 160 cm (02/14/21 8:00 AM) 160 cm (02/14/21 12:03 AM) 160 cm (02/13/21 12:00 AM) Weight 121.7 kg (02/11/21 10:00 AM) Oxygen Saturation [94-100 %] 99 % (02/14/21 8:00 AM) 96 % (02/14/21 12:03 AM) 97 % (02/13/21 8:00 AM) Pulse Rate [55-90 bpm] 75 bpm (02/14/21 8:00 AM) 77 bpm (02/14/21 12:03 AM) 79 bpm (02/13/21 8:00 AM) Body Mass Index [18.5-24.99] 47.54 *>HHI* (02/11/21 10:00 AM) Blood Pressure [90-138/55-84 mm Hg] 118/49mm Hg (02/14/21 8:00 AM) 120/59mm Hg (02/14/21 12:03 AM) 117/59mm Hg (02/13/21 8:00 AM) Respiratory Rate [16-30 br/min] 18 br/min (02/14/21 1:57 PM) 18 br/min (02/14/21 9:55 AM) 18 br/min (02/14/21 8:00 AM) Temperature [96.8-100.4 DegF] 97.4 DegF (02/14/21 8:00 AM) 97.8 DegF (02/14/21 12:03 AM) 98.2 DegF (02/13/21 8:00 AM) Mode of Delivery (Oxygen) Room air (02/14/21 8:00 AM) Room air (02/14/21 12:03 AM) Room air (02/13/21 8:00 AM) Blood pressure sites Arm, right (02/14/21 8:00 AM) Arm, right (02/14/21 12:03 AM) Arm, right (02/13/21 8:00 AM) Temperature Route Oral (02/14/21 8:00 AM) Oral (02/14/21 12:03 AM) Oral (02/13/21 8:00 AM) Dry Weight 121.7 kg (02/11/21 10:00 AM) Social History Social History Type Response Smoking Status Never (less than 100 in lifetime) entered on: 09/08/18 Sex
--- OUTSIDE RECORDS SUMMARY | 2023-04-07 06:16 | XMS_ITS | Continuity of Care Document ---
Author Name Unknown Organization [facility] ter Address [address] [place] [address]- Care Team Providers Care Extract Puller Name Role Phone Leonardo Persaud MD Primary Care Physician [phone] Encounter [facility] Date(s): 02/12/23 - 02/13/[address] [address]- Encounter Diagnosis Edema of right lower extremity(Final) - 02/13/23 Discharge Disposition: A-D/C Walkout Attending Physician: Malcolm Mills MD Admitting Physician: Malcolm Mills MD Referring Physician: Not on Staff, [...] Specified as with Psychotic Behavior Confirmed Active Obese class II Confirmed Active Other Nonspecific (Abnormal) Findings on Radiological and Other Examinations of Body Structure Confirmed 10/31/10 Active Posttraumatic Stress Disorder Confirmed Active Pulmonary Embolism and Infarction Confirmed 10/31/10 Active Pulmonary nodule 1 Confirmed 09/23/11 Active 1Incidental finding on CT chest [...] Exam Date Time Procedure Performing Provider Status 02/12/23 11:01 PM US Doppler Ext Lower Venous Right Joselito Davidson; Auth (Verified) Notes: (US Doppler Ext Lower Venous Right) Reason For Exam: Pain in limb;Other: RESULT: US Doppler Ext Lower Venous Right US Doppler Ext Lower Venous Right Reason: Other:; Pain in limb; Clinical Question(s): Thrombus COMPARISON: 06/26/2022. IMAGING TECHNIQUE: Ultrasound of the veins from the groin through the calf was performed using grayscale, color, and spectral Doppler ultrasound assessing for complete compressibility and normal flowcharacteristics. FINDINGS: Common femoral vein: Patent. No thrombosis. Femoral vein: Patent. No thrombosis. Popliteal vein: Patent. No thrombosis. Gastrocnemius veins: The visualized portions are patent without evidence of thrombosis. Peroneal veins: The visualized portions are patent without evidence of thrombosis. Posterior tibial veins: The visualized portions are patent without evidence of thrombosis. Contralateral common femoral vein: Patent. No thrombosis. OTHER FINDINGS: None. IMPRESSION: No evidence of deep venous thrombosis. I have personally reviewed the images and I agree with this report. WSN: [id number] Ordering Physician: Malcolm Mills Dictated By: Pedro[Radiology] Alberto CRUZ Dictated Date/Time: 02/12/23 11:06 p Reviewed By: Omar Parr MD Signed By: Omar Parr MD Signed Date/Time: 02/12/23 11:11 pm Transcribed By: LEXX Transcribed Date/Time: 02/12/23 11:01 pm Vital Signs Most recent to oldest [Reference Range]: 1 2 3 Height 160 cm (02/12/23 7:54 PM) Weight 99 kg (02/12/23 7:54 PM) Oxygen Saturation [94-100 %] 98 % (02/12/23 11:42 PM) 100 % (02/12/23 10:25 PM) 100 % (02/12/23 7:54 PM) Pulse Rate [55-90 bpm] 68 bpm (02/12/23 11:42 PM) 70 bpm (02/12/23 10:25 PM) 71 bpm (02/12/23 7:54 PM) Body Mass Index [18.5-24.99 kg/m2] 38.67 kg/m2 *>HHI* (02/12/23 7:54 PM) Blood Pressure [90-138/55-84 mm Hg] 115/69mm Hg (02/12/23 11:42 PM) 122/81mm Hg (02/12/23 10:25 PM) 120/85mm Hg (02/12/23 7:54 PM) Temperature [96.8-100.4 DegF] 98.3 DegF (02/12/23 11:42 PM) 98.5 DegF (02/12/23 10:25 PM) 98.2 DegF (02/12/23 7:54 PM) Mode of Delivery (Oxygen) Room air (02/12/23 11:42 PM) Room air (02/12/23 10:25 PM) Blood pressure sites Arm, right (02/12/23 11:42 PM) Arm, left (02/12/23 10:25 PM) Arm, left (02/12/23 7:54 PM) Temperature Route Oral (02/12/23 11:42 PM) Oral (02/12/23 10:25 PM) Oral (02/12/23 7:54 PM) Dry Weight 99 kg (02/12/23 7:54 PM) Weight Obtained Via Standing scale (02/12/23 7:54 PM) Dry Weight Obtained Via Standing scale (02/12/23 7:54 PM) Social History Social History Type Response Smoking Status Never (less than 100 in lifetime) entered on: 09/08/18 Sex Note * Lina CRUZ, Malcolm M: PERFORM Event Display: Patient Education Leaflets Authored Date: [id number] Leg Swelling in a Single Leg ?? [id number] Leg Swelling in a Single Leg Swelling of the arms, feet, ankles, and legs is called edema. It's caused by extra fluid collectingin the tissues. Because of gravity, extra fluid in the body settles to the lowest part. That's why the legs and feet are most affected. You have swelling in a single leg. Some of the causes for swelling in only 1 leg include: ??? Infection in the foot or leg ??? Muscle strain or tear in the affected leg ??? Blockage of the leg's lymphatic system ??? A Fay's cyst (located behind the knee) ??? Long-term problem with a vein not working well??(venous insufficiency) ??? Swollen, twisted vein in the leg (varicose veins) ???Insect bite or sting on the foot or leg ??? Injury or recent surgery on the foot or leg ??? Blood clot in a deep vein of the leg (deep vein thrombosis or DVT) ??? Inflammation of the joints of the lower leg Medical treatment will depend on what is causing your swelling. Home care Follow these guidelines when caring for yourself at home: ??? Don???t wear tight clothing. ??? Keepyour legs up while lying down or sitting. ??? Take any medicines as directed. ??? If infection, injury, or recent surgery is the cause of your swelling, stay off your legs as much as possible until your symptoms get better. ??? If you have venous insufficiency or varicose veins,??don???t sit or local intermodal truck driver 1 place for a long time. Take breaks and walk around every few hours. Talk with your healthcare provider about wearing support stockings to help reduce swelling during the day. ??? Wear compression stockings with your provider's approval. ?? Follow-up care Follow up with your healthcare provider as advised. ?? Call 911 Call 911 if any of these occur: ??? Shortness of breath or trouble breathing ??? Chest pain or discomfort ??? Coughing up blood ??? Fainting or loss of consciousness? When to get medical advice Call your healthcare provider right away if any of these occur: ??? Increased pain, swelling, warmth, or redness of the leg, ankle, or foot ??? Fever of 100.4??F (38??C) or higher, or as advised by your provider ??? Weakness or dizziness ??? Shaking chills ??? Drenching sweats ?? Last Reviewed Date: 2021 ?? [id number] [employer]. All rights reserved. This information is not intended as a substitute for professional medical care. Always follow your healthcare professional's instructions. ?? Patient Care team information Care Team Personnel Name: Arline Carmona RN Position: [facility] RN Member Role: Primary Care Nurse Name: Cori CRUZ, Leonardo Yap Position: Reference Physician Member Role: PCP Address: Address: [address] [place] [address] [place] [address]- Name: Elsa Chaney RN Position: [facility] RN Member Role: Primary Care Nurse Name: Malcolm Mills MD Position: [facility] ED Medicine MD Member Role: ED Attending Physician Address: Address: [address] [place] [address] [place] [address]- Care Team Related Persons Name: PATRICA NGO Address: [address] Address: home [address] [address] [place] Name: FRANCE NGO Address: [address] Address: home [address] [address] [place] Name: CARLY NGO Address: home [address] [address] Name: FEROZ NGO Address: home [address] [place] [address] Name: KATIE COOL Address: home [address] [address]
--- OUTSIDE RECORDS SUMMARY | 2023-04-07 06:16 | XMS_ITS | Continuity of Care Document ---
Author Name Unknown Organization [facility] ter Address [address] [place] [address]- Care Team Providers Care Tourist Escort Name Role Phone Marshal Mckeon MD Primary Care Physician [place] [facility] Date(s): 03/11/20 - 03/11/[address] [address] [facility] Discharge Disposition: A-D/C Home Attending Physician: Sheri [...] Refills, Soft Stop, 03/11/20 16:27:00 EDT, Tablet, [facility] #[id number], 158, cm, 03/30/19 9:33:00 EDT, Height, 106.6, kg, 03/11/20 14:37:00 EDT, Dry Weight Start Date: 03/11/20 Status: Ordered oxyCODONE 5 mg oral capsule 1 capsule = 5 mg, By Mouth, Every 6 hours, PRN as needed for pain, # 2 capsule, 0 Refills, Acute 04/07/20 16:28:00 EST, 03/11/20 16:28:00 EDT, Capsule, [facility] #[id number], Partial fill upon patient request, 158, cm, [...] 0 Refills, Maintenance, 03/11/20 16:27:00 EDT, Tablet, [facility] #[id number], 158, cm, 03/30/19 9:33:00 EDT, Height, 106.6, [...] Most recent to oldest [Reference Range]: 1 Weight 106.6 kg (03/11/20 2:37 PM) Oxygen Saturation [94-100 %] 100 % (03/11/20 2:37 PM) Pulse Rate [55-90 bpm] 85 bpm (03/11/20 2:37 PM) Blood Pressure [90-138/55-84 mm Hg] 124/ 68mm Hg (03/11/20 2:37 PM) Respiratory Rate [16-30 br/min] 18 br/mi n (03/11/20 2:37 PM) Temperature [96.8-100.4 DegF] 98.2 DegF (03/11/20 2:37 PM) Mode of Delivery (Oxygen) Room air (03/11/20 2:37 PM) Blood pressure sites Arm, right 1 (03/11/20 2:37 PM) Temperature Route Oral (03/11/20 2:37 PM) Dry Weight 106.6 kg (03/11/20 2:37 PM) 1Result Comment: right upper arm 36 cm Social History Social History Type Response Smoking Status Never (less than 100 in lifetime) entered on: 09/08/18 Sex
--- OUTSIDE RECORDS SUMMARY | 2023-04-07 06:16 | XMS_ITS | Continuity of Care Document ---
Author Name Unknown Organization [facility] ter Address [address] [place] [address]- Care Team Providers Care Telecommunications Line Installer Name Role Phone Sheri Greene MD Primary Care Physician Encounter [facility] [place] Date(s): 01/16/21 - 01/16/[address] [address] Discharge Disposition: A-D/C Home Attending Physician: Sheri [...] recent to oldest [Reference Range]: 1 2 Weight 121.7 kg (01/16/21 11:47 AM) Pulse Rate [55-90 bpm] 93 bpm *H* (01/16/21 12:01 PM) Blood Pressure [90-138/55-84 mm Hg] 124/ 71mm Hg (01/16/21 12:01 PM) Respiratory Rate [16-30 br/min] 16 br/mi n (01/16/21 12:01 PM) Temperature [96.8-100.4 DegF] 98.0 DegF (01/16/21 11:47 AM) Blood pressure sites Arm, left (01/16/21 12:01 PM) Temperature Route Oral (01/16/21 12:01 PM) Oral (01/16/21 11:47 AM) Dry Weight 121.7 kg (01/16/21 11:47 AM) Weight Obtained Via Standing scale (01/16/21 11:47 AM) Dry Weight Obtained Via Standing scale (01/16/21 11:47 AM) Social History Social History Type Response Smoking Status Never (less than 100 in lifetime) entered on: 09/08/18 Sex
--- OUTSIDE RECORDS SUMMARY | 2023-04-07 06:16 | XMS_ITS | Continuity of Care Document ---
Author Name Unknown Organization [facility] Address [address] [place] [address]- Care Team Providers Care Gem Cutter Name Role Phone Marshal Mckeon MD Primary Care Physician En[place] [facility] [place](s): 08/29/20 - 09/28/20 [facility] [address] [place] [id number] Allergies, Adverse Reactions, Alerts Substance Reaction [...] Refills, Soft Stop, 03/11/20 16:27:00 EDT, Tablet, [id number], 158, cm, 03/30/19 9:33:00 EDT, Height, 106.6, [...] 0 Refills, Maintenance, 03/11/20 16:27:00 EDT, Tablet, [facility] #[id number], 158, cm, 03/30/19 9:33:00 EDT, Height, 106.6, [...]
--- OUTSIDE RECORDS SUMMARY | 2023-04-07 06:16 | XMS_ITS | Continuity of Care Document ---
Author Name Unknown Organization [facility] ter Address [address] [place] [id number]- Care Team Providers Care Tray Packer Name Role Phone Not on Staff, PCP Primary Care Physician Unavail able Encounter [facility] [place] Date(s): 12/15/20 - 12/16/[address] [address]- Discharge Disposition: A-D/C Walkout Attending Physician: Not [...] [Reference Range]: 1 Oxygen Saturation [94-100 %] 98 % (12/15/20 11:24 PM) Pulse Rate [55-90 bpm] 94 bpm *H* (12/15/20 11:24 PM) Blood Pressure [90-138/55-84 mm Hg] 113/ 61mm Hg (12/15/20 11:24 PM) Respiratory Rate [16-30 br/min] 16 br/mi n (12/15/20 11:24 PM) Temperature [96.8-100.4 DegF] 98.4 DegF (12/15/20 11:24 PM) Mode of Delivery (Oxygen) Room air (12/15/20 11:24 PM) Blood pressure sites Arm, left (12/15/20 11:24 PM) Temperature Route Oral (12/15/20 11:24 PM) Social History Social History Type Response Smoking Status Never (less than 100 in lifetime) entered on: 09/08/18 Sex
[2023-04-07] MEDS: Aprepitant 32 MG/4.4 ML VIAL IVPUSH (06:57)
[2023-04-07] MEDS: Lactated Ringers 1,000 ML 999 ML IV (06:58)
--- NOTE | 2023-04-07 07:14 | PHA.MEDREC ---
Pharmacy Consult ? Medication Reconciliation Pharmacy has completed the medication reconciliation. Reviewed med rec done by nursing
--- NOTE | 2023-04-07 07:35 | P.BOP_ITS ---
Brief Operative Note Date of Service: 04/07/23 Pre-op diagnosis: Severe obesity with comorbidities (see below) Post-op diagnosis: same Procedure: INITIAL PATIENT BMI ON PRESENTATION AT OUR OFFICE: 40.4 kg/m2 LAST BMI BEFORE SURGERY: 36 kg/m2 COMORBIDITIES: Hx of DVT, back pain, GERD, liver fibrosis ?The patient presented to the Weight Management Program with significant obesity that was negatively impacting the patient's comorbidities as listed above.? The program is a phased program with a special focus on preoperative medical weight management to promote substantial weight loss and prepare the patients for the second phase of the program: bariatric surgery. The patient participated in an intensive weekly lifestyle ?intervention and exercise program during which the patient ?has lost between the initial office visit and the last preoperative visit 28.4lbs, or 12.26% of initial actual body weight. It was deemed appropriate for the patient to now have bariatric surgery. In light of the current Covid-19 pandemic and the well documented strong association of obesity and increased risk of worse outcomes if infected with Covid-19 (REFERENCES: https://pubmed.ncbi.nlm.nih.gov/88591936/ ,? https:/ /pubmed.ncbi.nlm.nih.gov/02200103/ ), any delay in undergoing bariatric surgery may lead to the patient's worsening health condition and increased?risk of more severe Covid-19 disease if infected. In addition a recent?study from [facility] published in [facility] on 05/27/2021 ([email or web address]/C:/[email or web address].pdf) found that, among patients with obesity, substantial weight loss achieved with surgery was associated with improved outcomes of COVID-19 infection. The findings suggest that obesity can be a modifiable risk factor for the severity of COVID-19 infection. In addition, the patient met the BMI-criteria for bariatric surgery based on the BMI on initial presentation. The patient should not be penalized for achieving such weight loss because ?it is not sustainable long-term without surgical intervention and it was achieved in preparation for bariatric surgery ?under my direction and based on my published research ([email or web address]/C:/[email or web address]).pdf and? https://www.soard.org/article/S9049-5014(86)62780-X/pdf ) ?that a 10% preoperative weight loss improves long-term weight loss after surgery and reduces perioperative complications.? Insurance carriers such as [facility] have endorsed my recommendations ?and have included in their policies criteria to include a 10% preoperative weight loss requirement. PROCEDURE: Esophago-gastroscopy, laparoscopic lysis of adhesions, laparoscopic sleeve gastrectomy and laparoscopic gastropexy INDICATIONS: This is a 37 year-old female who was electively scheduled for laparoscopic, possibly open sleeve gastrectomy. The risks and complications of the procedure were discussed with the patient in advance, particularly the po ssibility of ; pulmonary embolism; staple line leak; bleeding; GERD; cardiac, pulmonary, or renal complications; as well as long-term problems such as insufficient weight loss, vitamin deficiency, strictures, or ulcers. The patient understood all the risks, and was in agreement to proceed with surgery. DESCRIPTION OF PROCEDURE: After informed consent was obtained from the patient, the patient was given preoperative antibiotics, and was transferred to the operating room. After successful induction of general anesthesia, pneumatic compression devices were placed on both lower extremities. An upper endoscopy was performed next. The oropharynx and esophagus appeared to be within normal limits. There was no diaphragmatic hernia present consistent with the findings of the preoperative upper GI. The stomach was entered. Then after all fluid and air were suctioned and the stomach was fully decompressed, the scope was withdrawn and secured in the mid esophagus. The patient was then prepped and draped in the usual sterile manner, and abdominal access was established at the right upper quadrant with the Howard technique. A 12 mm blunt port was inserted, and the abdomen was insufflated with CO2 to a pressure of 15 mmHg. Under direct visualization, additional ports were placed, specifically two 5 mm Versi-step ports to the left upper quadrant, and a 5 mm Versi-Step port to the right upper quadrant. 1% lidocaine plain was used to infiltrate all port sites as well as all fascia defects. Following that, the patient was placed in a steep reverse Trendelenburg position. An additional 5 mm port was placed to the right flank for the Mediflex retractor that was used to retract the left lobe of the liver. The gastro-esophageal fat pad was opened with the ultrasonic device (Shayy vogt, Olympus) and the anterior esophagus and hiatus were exposed. The angle of His was opened with the ultrasonic device the fundus of the stomach from any diaphragmatic and splenic attachments. I then opened the gastrocolic ligament between the transverse colon and the greater curvature of the stomach with the ultrasonic device to enter the lesser sac and facilitate the ligation of the short gastric vessels. I started at a mid-point along the greater curvature and using the Thunderbeat, all short gastric vessels were divided all the way to the angle of His until the left jasmeet was completely dissected at its entirety. I then divided the gastro-colic ligament distally to a distance of about 3-4 cm proximal to the pylorus. There were extensive congenital adhesions between the pancreas and posterior gastric wall. Those were lysed completely with the ultrasonic device. Adhesiolysis took approximately 45 min to complete. The stomach was then divided transversely with one Endo KEVIN-45 purple and four KEVIN-60 articulating purple loads using the [employer] stapler and loads. Every effort was made that the gastric sleeve had a tubular shape and an even caliber throughout. Once the sleeve resection was completed, the staple line of the gastric sleeve was reinforced with Hemoclips. The resected stomach was retrieved without difficulty from the Howard port. A gastropexy was then performed in order to prevent postoperative GERD and partial gastric volvulus. Several interrupted 2.0 Surgidac sutures were placed between the sleeve's staple line and the previously divided greater omentum and gastro-colic ligament using the Endo-Stitch device. ?An upper endoscopy was performed. There was no narrowing at the GE junction. The scope was easily advanced all the way to the pylorus which was clearly visualized. There was no narrowing anywhere and the sleeve's caliber was even throughout. The sleeve's staple line was inspected and there was no evidence of ischemia, bleeding or dehiscence. At that point the gastroscope was withdrawn from the patient?s mouth while we were decompressing the bowel and the stomach from any remaining air. I looked into the lesser sac to see how the sleeve was situating and it was situating well. There was no bleeding from the staple line, spleen, or short gastric vessels. The Mediflex retractor was removed, and the undersurface of the liver was inspected and there was no bleeding. The patient was placed in supine position. I closed the fascial defect of the 12 mm port site with a figure of eight #1 Polysorb suture. Then 30cc Ropivacaine plain with 10 mg of Dexamethasone were used to infiltrate the fascial closure as well as all skin incisions. A total of 7ml Zynrelef was applied in the Howard wound. At this point, the abdomen was deflated, all ports were removed under direct vision, and no bleeding was noted from any of the port sites. The skin incisions were irrigated with saline and were closed with 4-0 absorbable monofilament sutures. Steri-Strips and OpSites were used to cover all incisions. The patient was extubated and was transferred in stable condition to the recovery room for further care. I was present and performed all robles parts of the procedure. Ms. Fregososon was the first responder. There were no residents to assist with this case. Juanjose Pollard MD, PhD, FACS Surgeon: Malik Pollard MD Anesthesia: GETA, local and other (TAP block and 7ml Zynrelef) Was an Fabric Machine Operator used for this Procedure?: No Fabric Machine Operator: Chiara Pedro Estimated blood loss (mL): 10 IV fluids (mL): 3,000 Urine output (mL): 0 (No Rand to record output) Pathology: other (Stomach) Condition: stable Disposition: PACU
--- NOTE | 2023-04-07 07:37 | P.PNGS_ITS ---
Subjective Subjective Date of Service: 04/07/23 Interval history: Feels well. Mild incisional pain. She is tolerating phase 1 bariatric diet Physical Exam 2 Vital Signs: Vital Signs: Last Vital Signs Temp 97.8 F 04/07/23 06:31 Pulse 82 04/07/23 06:31 Resp 16 04/07/23 06:31 BP 128/78 04/07/23 06:31 Pulse Ox 100 04/07/23 06:31 O2 Del Method Room Air 04/07/23 06:31 BMI result Body Mass Index 36.7 GI: Inspection: Yes normal to inspection, Yes incision (clean, dry and intact) and Yes obesity Palpation (GI): Soft to palpation Extrem: Right lower extremity: normal to inspection (no calf tenderness) L eft lower extremity: normal to inspection (no calf tenderness) Objective Data Active Medications Albuterol Sulfate (Albuterol Sulfate (0.083%) 2.5 Mg/3 Ml Vial.Neb) 2.5 mg INHALE ONCE PRN PRN Reason: Shortness of Breath/Wheezing Fentanyl (Fentanyl Citrate/Pf 100 Mcg/2 Ml Vial) 50 mcg IVPUSH Q5M PRN; Protocol PRN Reason: Pain, Severe (Pain Scale 7-10) Hydromorphone HCl (Hydromorphone Hcl 0.5 Mg/0.5 Ml Syringe) 0.5 mg IVPUSH Q5M PRN; Protocol PRN Reason: Pain, Severe (Pain Scale 7-10) Lactated Ringer's (Lr) 1,000 mls @ 100 mls/hr IVCONT .Q10H [facility] Lactated Ringer's (Lr) 1,000 mls @ 999 mls/hr IV .Q1H1M [facility] Stop: 04/07/23 08:15 Last Admin: 04/07/23 06:58 Dose: 999 mls/hr Documented By: SHIVAM Promethazine HCl 6.25 mg/ (Sodium Chloride) 50.25 mls @ 201 mls/hr IV ONCE PRN PRN Reason: Nausea and Vomiting Ondansetron HCl (Ondansetron Hcl 4 Mg/2 Ml Vial) 4 mg IVPUSH ONCE PRN PRN Reason: Nausea and Vomiting Labs 04/07/23 10:02 04/07/23 10:02 Labs: Laboratory Results - last 24 hr 10/04/06/23 04/06/23 11:05 09:45 09:54 MCV 90.9 MCH 31.4 MCHC 34.6 RDW 12.0 Plt Count 264 MPV 10.3 Immature Gran % (Auto) 0.2 Neut % (Auto) 54.4 Lymph % (Auto) 36.6 Bond % (Auto) 7.1 Eos % (Auto) 0.7 Baso % (Auto) 1.0 Lymph # (Auto) 1.5 Bond # (Auto) 0.3 Eos # (Auto) 0.0 Baso # (Auto) 0.0 Abs Immat Gran (auto) 0.01 Absolute Neuts (auto) 2.2 Absolute Nucleated RBC 0.000 Nucleated RBC % (auto) 0.0 PT 18.1 H 13.0 D INR 1.5 H 1.1 APTT 40.6 H 33.6 Anion Gap 14 Estimated GFR > 60 Random Glucose 77 Estimat Average Glucose 103 Hemoglobin A1c % 5.2 Calcium 9.5 Total Bilirubin 1.1 H AST 15 ALT 6 Alkaline Phosphatase 70 C-Reactive Protein 0.11 Total Protein 7.9 Albumin 4.5 Triglycerides 73 Cholesterol 183 LDL Cholesterol, Calc 135 H HDL Cholesterol 34 L TSH 2.76 Blood Type TNP Antibody Screen TNP Procedures Date of Service Date of Service: 04/07/23 Progress Note: A&P Assessment and plan (1) Obesity: Status: Acute Assessment and Plan: s/p laparoscopic sleeve gastrectomy, lysis of adhesions and gastropexy Doing well Will check am labs and if OK the patient will be discharged home (2) BMI 36.0-36.9,adult: Status: Acute (3) Asthma: Status: Acute (4) Back pain: Status: Acute (5) DVT (deep venous thrombosis): Status: Acute (6) S/P laparoscopic sleeve gastrectomy: Status: Acute (7) Congenital intra-abdominal adhesions: Status: Acute Time Spent With Patient Time: Total time managing care of this patient today ____ minutes. Quality Stroke Does the patient have a stroke diagnosis?: No VTE Prior VTE?: Yes VTE Risk Level:: Surgical - high VTE Device Contraindication: N/A - Device Ordered VTE Drug Contraindication: Treatment Not Indicated
--- NOTE | 2023-04-07 09:52 | P.DS_ITS ---
DS: Providers Provider Date of Service: 04/08/23 Date of admission: 04/07/23 06:12 Primary care physician: Mariaelena Guzmán MD DS: Diagnosis Discharge Diagnosis (1) Obesity: Status: Acute (2) BMI 36.0-36.9,adult: Status: Acute (3) Asthma: Status: Acute (4) Back pain: Status: Acute (5) DVT (deep venous thrombosis): Status: Acute (6) S/P laparoscopic sleeve gastrectomy: Status: Acute (7) Congenital intra-abdominal adhesions: Status: Acute DS: Summary Hospital Course Hospital Course: ADMITTING DIAGNOSIS: morbid obesity, hx of DVT and PE, GERD, asthma DISCHARGE DIAGNOSIS: same, s/p laparoscopic sleeve gastrectomy PAST SURGICAL HISTORY: R hip replacement, section PROCEDURE: upper endoscopy, laparoscopic sleeve gastrectomy DISCHARGE SUMMARY: History of Present Illness: The patient is a 37 year-old woman with a BMI of 40.3 kg/m2 and associated co- morbidities as described above. The patient had extensive work-up, lost 28.4 lbs preoperatively and was electively scheduled for laparoscopic, possible open sleeve gastrectomy and gastropexy. Risks and complications of the surgery were discussed with the patient in advance, particularly the possibility of , pulmonary embolism, anastomotic leak, bleeding, bowel injury, GERD, cardiac, renal or pulmonary complications. The patient understood all the risks and was in agreement with the surgical plan. Hospital Course: The patient underwent an uneventful laparoscopic sleeve gastrectomy with gastropexy on the day of admission. Postoperatively, the patient was transferred to the surgical floor. The patient received IV Acetaminophen and IV dilaudid for pain control. Patient was started on bariatric phase 1 diet POD #0. On postoperative day one, the patient was feeling well without nausea, vomiting, fevers, or tachycardia. The patient had some mild incisional pain and the abdomen was soft. On the morning of postoperative day one, the patient was continued on 1 ounce of water or ice every half hour. During the day, the patient did fairly well, having some incisional pain, but able to ambulate adequately and to tolerate liquids well. Since the patient is doing well, we decided that the patient was ready to be discharged. The patient was given instructions to follow-up with me next week and to call my office for any fever over 101, persistent abdominal pain, nausea, vomiting, GERD, symptoms of DVT such as calf tenderness, or leg swelling, or pulmonary embolism such as chest pain or shortness of breath. The patient was also instructed to drink 40-60 ounces of liquids per day using the 1-ounce cups. The patient had been given prescriptions for Tylenol for pain, Zofran prn for nausea, and pantoprazole and carafate previously. The patient was encouraged to ambulate and use the incentive spirometer. The patient was allowed to shower, but no baths, and encouraged to stay active at home. All of these instructions were given to the patient personally. All questions were answered and the patient understood all instructions, the instructions were also given to the patient in print. Time Attestation Discharge coordination time: Less than 30 minutes Quality: Safe Use of Opioids Does Pt have an Active Cancer Diagnosis on the Problem List?: No Quality: Stroke Does the patient have a stroke diagnosis?: No Physical Exam Vital Signs: Vital Signs: Last Vital Signs Temp 97.8 F 04/07/23 06:31 Pulse 82 04/07/23 06:31 Resp 16 04/07/23 06:31 BP 128/78 04/07/23 06:31 Pulse Ox 100 04/07/23 06:31 O2 Del Method Room Air 04/07/23 06:31 BMI result Body Mass Index 36.7 DS: Data Data Completed and Pending Pending studies at discharge: Pending at discharge 04/07/23 09:19 Surgical [PTH] Routine Labs on day of discharge: Laboratory Results - last 24 hr 03/27/23 04/06/23 04/06/23 11:05 09:45 09:54 WBC 4.1 L RBC 4.49 Hgb 14.1 Hct 40.8 MCV 90.9 MCH 31.4 MCHC 34.6 RDW 12.0 Plt Count 264 MPV 10.3 Immature Gran % (Auto) 0.2 Neut % (Auto) 54.4 Lymph % (Auto) 36.6 [place] % (Auto) 7.1 Eos % (Auto) 0.7 Baso % (Auto) 1.0 Lymph # (Auto) 1.5 [place] # (Auto) 0.3 Eos # (Auto) 0.0 Baso # (Auto) 0.0 Abs Immat Gran (auto) 0.01 Absolute Neuts (auto) 2.2 Absolute Nucleated RBC 0.000 Nucleated RBC % (auto) 0.0 PT 18.1 H 13.0 D INR 1.5 H 1.1 APTT 40.6 H 33.6 Sodium 138 Potassium 4.0 Chloride 105 Carbon Dioxide 23 Anion Gap 14 BUN 15 Creatinine 0.84 Estimated GFR > 60 Random Glucose 77 Estimat Average Glucose 103 Hemoglobin A1c % 5.2 Insulin Level 6 Calcium 9.5 Total Bilirubin 1.1 H AST 15 ALT 6 Alkaline Phosphatase 70 C-Reactive Protein 0.11 Total Protein 7.9 Albumin 4.5 Triglycerides 73 Cholesterol 183 LDL Cholesterol, Calc 135 H HDL Cholesterol 34 L TSH 2.76 Blood Type TNP Antibody Screen TNP Discharge Plan Discharge Anticipated Discharge Date/Time: 04/08/23 10:49 Patient Disposition: Home, Self-Care Discharge Diagnosis: s/p sleeve gastrectomy Referrals: Mariaelena Guzmán MD [Primary Care Provider] - 1 Week Discharge Medications: Continued pantoprazole 40 mg tablet,delayed release (DR/EC) 40 mg PO DAILY Qty: 30 2RF sucralfate 100 mg/mL suspension 10 ml PO BID Qty: 400 2RF ondansetron 4 mg tablet,disintegrating 4 mg PO Q12H Qty: 20 0RF Rx Instructions: Only take one every 12 hours as needed if you have nausea fondaparinux 2.5 mg/0.5 mL syringe 2.5 mg subcut Q24H Qty: 5 0RF albuterol sulfate 90 mcg/actuation HFA aerosol inhaler 2 puff inhalation Q6H PRN (Reason: Shortness Of Breath Or Wheezing) Discontinued cholecalciferol (vitamin D3) 125 mcg (5,000 unit) capsule 125 mcg PO DAILY 90 Days Qty: 90 1RF cyanocobalamin (vitamin B-12) 500 mcg tablet 500 mcg PO DAILY 90 Days Qty: 90 0RF thiamine HCl (vitamin B1) 100 mg tablet 100 mg PO DAILY 90 Days Qty: 90 1RF Xarelto 10 mg tablet 10 mg PO DAILY Rx Instructions: for 35 days Discharge Orders: Discharge Order (Routine); Ordered 04/08/23 Ordered By: William Gutiérrez Activity on Discharge: No heavy lifting Stand Alone Forms: Patient Portal Discharge page Care Plan Goals: weight loss Health Concerns: obesity Plan of Treatment: No tub baths, sex or returning to work until discussed at first post op appointment. No exercise, alcohol, tobacco or illegal drug use. Continue to use incentive spirometer hourly while awake. Walk in home for 5- 10 minutes every 2 hours during the first week. Continue phase 1 diet today and start phase 2 diet tomorrow morning. Follow all instructions in the bariatric handbook and call with any questions. 1. Please call your doctor or come back to the emergency room should any new symptoms arise. 2. You will receive a courtesy call from [facility] 24-48 hours after discharge. 3. Activity: abstain from alcohol, practice limited stair climbing, no bending, no driving, no exercise, no illicit substances, no lifting, no sex, no tub bath, no work. 4. Diet: continue as discussed with bariatric team.. 5. Dressing Change/Wound Care: Do not change or remove surgical dressings unless they are wet or soiled. 6. Call your doctor if: - Your temperature exceeds 101.5 F - You experience excessive pain or swelling - You have an unexpected reaction to medication - You have excessive bleeding - You experience continued vomiting/nausea - Your incision begins to separate - Your incision shows signs of infection such as increased redness, swelling, excessive pain, heat, or drainage (light blood or clear fluid is normal) 7. General instructions: No lifting greater than 5 lbs for 1 week and not more than 20lbs the next 3?weeks. No driving until seen at the office in 5-7 days after surgery. If you do not move your bowels in the next 2 days, please tell?Dr. Pollard. Please walk around your home every hour or two to prevent blood clots from forming in your legs. You do not need to wake from sleeping to walk. Please sleep in a bed or couch to prevent kinking at the hips and knees. Silvio guallpa take your incentive spirometer (your lung web site manager) home with you and use it for the next few days to prevent pneumonia. You may shower, no hot tubs, baths or swimming pools.?Please follow the post op diet instructions you are?given by Dr Marely robbins? and text me daily at 5-6pm for an update.?If you have any issues or concerns or questions please communicate this to him via text.? The Celebrate shakes have all of the bariatric vitamins you need if you consume these shakes. If you are drinking other protein shakes, you will need to purchase the Celebrate multivitamins and calcium that are available in the hospital gift shop on the first floor of the main hospital.??Do not take anything without first discussing with Dr Pollard. Please make sure you are consuming at least 40 ounces of fluids per day starting the?day AFTER your discharge from the hospital. Always drink 1-2 ml per minute using the 5ml?syringe. If you drink faster you may experience?bloating,?gas pain, burping, nausea or heartburn. In that case please slow down your pace and use the syringe to?understand better the?proper?pace and volume of drinking. Do not hesitate to contact the office with any questions at . The patient's medical history has been reviewed and they are considered low risk for post op DVT and therefore DVT prophylaxis is not considered necessary. Travel after surgery was reviewed. The patient has not disclosed any travel plans during the first 30 days after surgery and they have been advised that within the first 30 days after surgery any bus, plane, train or car travel over 2 hours in duration is contraindicated due to the possibility of developing blood clots from immobility. Any travel, needs to include periods of ambulation of 10 minutes in duration every 2 hours. The patient was instructed to discuss any plans for travel during this period with their bariatric surgeon. Assessment: stable pos top sleeve gastrectomy Discharge Date/Time: 04/08/23 09:52
[2023-04-07 10:09] LABS: Hemoglobin 12.1 g/dl (12.0-16.0)
[2023-04-07 10:44] LABS: Anion Gap 15 (12-20); Blood Urea Nitrogen 6 mg/dL (9-16); Calcium 8.5 mg/dL (8.4-10.2); Carbon Dioxide 22 mmol/L (22-29); Chloride 105 mmol/L (96-108); Creatinine Clr Calc Pharmacy 111.4; Estimated Glomerular Filt Rate > 60; Glucose Random 126 mg/dL (60-115); Potassium 3.7 mmol/L (3.3-5.1); Sodium 138 mmol/L (135-145)
[2023-04-07] MEDS: Famotidine/PF 20 MG/2 ML VIAL IVPUSH ×2 (11:01→19:33)
[2023-04-07] MEDS: Lactated Ringers 1,000 ML 100 ML IVCONT ×2 (11:01→19:33)
[2023-04-07] MEDS: ceFAZolin Sodium/Dextrose,Iso 2 GM/50 ML PIGGYBACK IV (13:02)
[2023-04-07] MEDS: Acetaminophen 1,000 MG/100 ML PIGGYBACK 16.7 MG IV ×2 (13:38→19:32)
[2023-04-07] MEDS: 0.9 % Sodium Chloride Flush 3 ML SYRINGE IVFLUSH (19:33)
[2023-04-08] MEDS: Acetaminophen 1,000 MG/100 ML PIGGYBACK 16.7 MG IV ×2 (01:27→08:19)
[2023-04-08 03:29] VITALS: BP 120/70; PULSE 59; RESP 16; TEMP 36.5; O2SAT 98
[2023-04-08] MEDS: Lactated Ringers 1,000 ML 100 ML IVCONT (05:21)
[2023-04-08 05:56] LABS: MANUAL DIFF FLAG NO
[2023-04-08 06:16] LABS: Hematocrit 34.6 % (37.0-47.0); Hemoglobin 11.6 g/dl (12.0-16.0); Imm Gran Abs Auto 0.01 X10*3/uL (0.00-0.03); Imm Gran Pct Auto 0.2 % (0.0-0.4); Lymphocytes Absolute Auto 0.9 X10*3/uL (1.2-4.9); Lymphocytes Percent Auto 14.4 % (20-40); Mean Corpuscular HGB Conc 33.5 g/dl (31.0-35.0); Mean Corpuscular Volume 92.5 fL (80.0-98.0); Monocytes Absolute Auto 0.5 X10*3/uL (0.1-1.2); Monocytes Percent Auto 7.9 % (2-11); Neutrophils Absolute Auto 4.7 x10*3/uL (2.0-8.3); Neutrophils Percent Auto 77.5 % (45-73); Platelet Count 227 X10*3/uL (160-400); Red Blood Count 3.74 X10*6/uL (4.20-5.50); Red Cell Distribution Width 12.3 % (11.0-16.0); White Blood Count 6.1 X10*3/uL (4.8-10.8)
[2023-04-08 06:32] LABS: Anion Gap 14 (12-20); Blood Urea Nitrogen 5 mg/dL (9-16); Calcium 9.1 mg/dL (8.4-10.2); Carbon Dioxide 24 mmol/L (22-29); Chloride 106 mmol/L (96-108); Creatinine Clr Calc Pharmacy 112.6; Estimated Glomerular Filt Rate > 60; Glucose Random 106 mg/dL (60-115); Potassium 4.2 mmol/L (3.3-5.1); Sodium 140 mmol/L (135-145)
[2023-04-08 07:36] VITALS: BP 112/64; PULSE 77; RESP 18; TEMP 36.7; O2SAT 98
[2023-04-08] MEDS: Famotidine/PF 20 MG/2 ML VIAL IVPUSH (08:19)
--- NOTE | 2023-04-08 08:45 | MHC.CM.PN ---
CM MET WITH PT AT BEDSIDE. INDEPENDENT WITH MOBILITY AT BASELINE, STAY AT HOME MOM. NO SERVICES PRIOR. NO COVID VAX. PCP DR. LEMA. DP: PT HAS BEEN MEDICALLY CLEARED FOR DC HOME, NO SERVICES. [facility] WILL TRANSPORT HOME.
--- NOTE | 2023-04-08 10:49 | HO.POSTANES ---
Post Anesthesia Evaluation Post Anesthesia Evaluation Date of Service: 04/08/23 Vital Signs: Vital Signs Temp Pulse Resp BP Pulse Ox O2 Del Method 04/08/23 07:36 98.0 F 77 18 112/64 98 Room Air 04/08/23 03:29 97.7 F 59 16 120/70 98 Room Air 04/07/23 23:38 97.2 F 62 14 131/77 99 Room Air Anesthesia: General Endotracheal-GETA Mental Status: Awake Pain Control: Satisfactory Nausea/Vomiting: None Hydration: Adequate Anesthesia-Related Issues: No Anes. Related Issues
== END 2023-04-08 09:52 | disposition home or self-care (01) | DRG 403 ==
LOC: HO.SSSA 09:51 → HO.S3 10:05
PROVIDERS: Physician Assistant; Admitting Provider Surgery; PCP Internal Medicine; Visit Provider Surgery
PROC: 0DB64Z3 Excision of Stomach, Percutaneous Endoscopic Approach, Vertical (ICD-10-PCS; CPT 43845; principal; 2023-04-07 07:30)
DX: E66.01 Morbid (severe) obesity due to excess calories (principal); K74.00 Hepatic fibrosis, unspecified; Q43.3 Congenital malformations of intestinal fixation; K21.9 Gastro-esophageal reflux disease without esophagitis; Z68.36 Body mass index [BMI] 36.0-36.9, adult; Z86.718 Personal history of other venous thrombosis and embolism; Z86.711 Personal history of pulmonary embolism; Z79.01 Long term (current) use of anticoagulants; Z79.899 Other long term (current) drug therapy
CPT/HCPCS: 36415; 80048; 80053; 80061; 83036; 83525; 84443; 85014; 85018; 85025; 85610; 85730; 86140; 86850; 86900; 86901; 88305; 88307; 88342; A4649; C9088; C9145; J0131; J0690; J1100; J1170; J2250; J2371; J2405; J2550; J2795; J3010

== ENCOUNTER 2023-04-14 10:26 | Outpatient (AMB) | payer OTHER, SELFPAY ==
--- NOTE | 2023-04-14 11:08 | MHC.OFFVISWM ---
Intake VS Expanded 04/14/23 11:17 BP 113/61 Blood Pressure Location Rt brachial Blood Pressure Position Sitting Pulse 78 Pulse Source Pulse Oximeter Temp 97.9 F Temperature Source Tympanic Pulse Oximetry 100 Oxygen Delivery Method Room Air Height 5 ft 3 in Weight 191 lb 12.8 oz BMI 34.0 Body Fat % 40.9 Body Fat Mass 78.2 Fat Free Mass 113.4 Visceral Fat Rating 9.0 Body Water % 42.3 Body Water Mass 81.2 Muscle Mass/Score 107.6 Basal Metabolic Rate/Score 1,586 Intake Visit Reasons: (OV) 7 Days PO LSG 04/07/23 Allergies No Known Allergies Allergy (Verified 04/14/23 11:24) HPI HPI Comments History of Present Illness Details 37-year-old female, 7 days postoperatively sleeve gastrectomy performed on 04/07/2023. She did not like the celebrate foreign 1 shakes and was instructed to take cream year protein powder, 1 scoop each in 3 shakes with almond milk. She reports that she has consistently had about 2 and half of these and approximately 10 oz of fluids. She has not communicated this with Dr. Yap. she has not felt lightheaded although has not felt generally very well. She reports liquid bowel movement and no significant pain. It was discussed extensively the importance of communication as our job is to help her be successful. It was discussed the critical need to maintain hydration. She states that she will continue to drink fluids including Gatorade Zero and propel as well as water. She may drink Pedialyte if she wishes. She states that she does not like the Premier protein any longer and will communicate this with Dr. Yap today. She continues to take Arixtra as she was instructed. She does state that the Steri-Strips came off the midline incision several days ago, she dish in a least states that her 2-year-old was trying to pick at her incision but she stopped him. [facility] Medical History (Updated 04/07/23 @ 09:49 by Malik Pollard MD) DVT (deep venous thrombosis) History of postoperative nausea and vomiting GERD (gastroesophageal reflux disease) History of headache Back pain Asthma Pulmonary embolism Surgical History History of tubal ligation History of right hip replacement Hx of section Family History Mother No problems noted. Father No problems noted. Sister Thyroid disease Brother No problems noted. Brother No problems noted. Son No problems noted. Son No problems noted. Daughter No problems noted. Daughter Epilepsy Social History Household Members: Spouse and Children Housing: House Are you a primary customer care agent to a significant other at home: No Do you presently have visiting nurse or other home services: No Alcohol intake: never Patient Tobacco Use Status: Never used Tobacco service: No Physical Exam GI Other: Spitting suture to the midline incision, left edge without dehiscence. For Steri-Strips reapplied. Other incisions clean, dry, intact. Assessment & Plan Assessment & Plan (1) S/P laparoscopic sleeve gastrectomy: Code(s): Z98.84 - Bariatric surgery status Plan: POD 7 s/p LSG on 04/07/[address] Pollard Weight loss prior to surgery was 24.5 pounds or 10.6% TBWL. Original weight on 12/30/22 was 231 pounds and op weight was 206.5 pounds. Be sure to text Dr Pollard exactly 1 week after surgery your weight from your home scale so he can adjust your meal plan. Continue meal plan until f/u w Gutiérrez in 2 weeks May shower, no submersion in bath for another week Continue abdominal binder with activity and exercise for the next 2 weeks. Exercise prior to surgery was treadmill/[place], may resume No abdominal exercises for 6 weeks post operatively Will be emailed link to post op video for review Reminded of the pace of drinking, 2 mL per minute, 1 oz/15 min. Critical to not only communicate with the office but to drink more fluids. She states that she will do so immediately. She was in no immediate distress and did not show evidence of acute dehydration. It was discussed extensively the importance of hydration and she states that she will follow accordingly. She is going to communicate with Dr. Marely charles about her dislike of the Premier protein shake for another plan. (2) DVT (deep venous thrombosis): Comment: 2009, 2018, 2020 followed by [facility] hematology Code(s): I82.409 - Acute embolism and thrombosis of unspecified deep veins of unspecified lower extremity Plan: Continues on Arixtra. This will be for another 3 days and then she will resume her previous anticoagulation. Coding Level of Care Code Global (59939) Diagnoses S/P laparoscopic sleeve gastrectomy Z98.84 DVT (deep venous thrombosis) I82.409
[2023-04-14 11:17] VITALS: BP 113/61; PULSE 78; TEMP 36.6; O2SAT 100; BMI 34.0
== END 2023-04-14 11:52 | disposition home or self-care (01) ==
PROVIDERS: PCP Internal Medicine; Visit Provider Physician Assistant Surgical
DX: E66.9 Obesity, unspecified (principal); Z68.34 Body mass index [BMI] 34.0-34.9, adult; Z90.3 Acquired absence of stomach [part of]; Z98.84 Bariatric surgery status
CPT/HCPCS: 99024

== ENCOUNTER → 2023-04-14 10:26 | Outpatient (BNVA) | payer OTHER, SELFPAY | PROVIDERS: PCP Internal Medicine; Visit Provider Physician Assistant Surgical ==

== ENCOUNTER 2023-05-08 11:20 | Outpatient (AMB) | payer OTHER, SELFPAY ==
--- NOTE | 2023-05-08 11:27 | A.OFFVIS_ITS ---
Intake VS Expanded 05/08/23 11:35 BP 107/58 L Blood Pressure Location Lt brachial Blood Pressure Position Sitting Pulse 65 Pulse Source Pulse Oximeter Temp 97 F Temperature Source Temporal Artery Scan Pulse Oximetry 100 Oxygen Delivery Method Room Air Height 5 ft 3 in Weight 180 lb 12.8 oz BMI 32.0 Body Fat % 37.1 Body Fat Mass 67.0 Fat Free Mass 113.8 Visceral Fat Rating 7.0 Body Water % 45.0 Body Water Mass 81.4 Muscle Mass/Score 108.0 Basal Metabolic Rate/Score 1,570 Intake Visit Reasons: (OV) PO LSG 04/07/23 Intake Note: Patient is seen in office for follow up visit, following LSG. 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 Presents for 1 month post op visit. Weight today is 180.8 pounds, with a BMI of 32. There has been a 50.2 pound weight loss,(initial weight 231 pounds) since starting the program on 12/30/2022 reflecting a 21.7 % total body weight loss and a weight loss of 26.3 pounds since surgery (operative weight 206.5 pounds) reflecting a 12.7 % TBWL since surgery. No complaints of nausea, emesis, abdominal pain or reflux. Reports infrequent but normal bowel movements every 7 days and uses stool softeners regularly. She states that she could no longer tolerate protein shakes and has been communicating with Dr. Pollard and has been started on bars. Present meal plan includes: Fulfil protein bars, 8-11, 1-4, 6-9 Isopure 1/2 scoop mixed in 16 oz water w a sprinkle of crystal light 20 additional oz water Exercise routine includes: PF, treadmill/elliptical, 3 x per week, 300 calories. [facility] Medical History (Updated 05/08/23 @ 12:41 by ALMA Everett) BMI 36.0-36.9,adult DVT (deep venous thrombosis) History of postoperative nausea and vomiting GERD (gastroesophageal reflux disease) History of headache Back pain Asthma Pulmonary embolism Surgical History History of tubal ligation History of right hip replacement Hx of section Family History Mother No problems noted. Father No problems noted. Sister Thyroid disease Brother No problems noted. Brother No problems noted. Son No problems noted. Son No problems noted. Daughter No problems noted. Daughter Epilepsy Social History Household Members: Spouse and Children Housing: House Are you a primary insurance healthcare representative to a significant other at home: No Do you presently have visiting nurse or other home services: No Alcohol intake: never Patient Tobacco Use Status: Never used Tobacco service: No Physical Exam GI Inspection: Yes incision (healing well) Assessment & Plan Assessment & Plan (1) Obesity: Code(s): E66.9 - Obesity, unspecified Plan: Patient is found a meal plan that she likes. She just started the isopure protein powder in water and likes it. She will continue to communicate with Dr. Pollard. Encouraged to increase her exercise frequency to achieve a goal of 2000 calories per week. Return to clinic 3 weeks. (2) Constipation: Code(s): K59.00 - Constipation, unspecified Plan: Discussed the importance and direct correlation of drinking water as it relates to constipation. She will try to drink more water and I have given a prescription for senna 2 tabs at night. Medications: New sennosides (senna) 17.2 mg (2 x 8.6 mg) PO BEDTIME 90 days PRN 180 tabs 0RF constipation Coding Level of Care Code Global (50031) Diagnoses Obesity E66.9 Constipation K59.00
[2023-05-08 11:35] VITALS: BP 107/58; PULSE 65; TEMP 36.1; O2SAT 100; BMI 32.0
== END 2023-05-08 12:43 | disposition home or self-care (01) ==
PROVIDERS: PCP Internal Medicine; Visit Provider Physician Assistant Surgical
DX: E66.9 Obesity, unspecified (principal); K59.00 Constipation, unspecified
CPT/HCPCS: 99024

== ENCOUNTER → 2023-05-08 11:20 | Outpatient (BNVA) | payer OTHER, SELFPAY | PROVIDERS: PCP Internal Medicine; Visit Provider Physician Assistant Surgical | DX: E66.9 Obesity, unspecified (principal); K59.00 Constipation, unspecified; Z68.32 Body mass index [BMI] 32.0-32.9, adult | CPT/HCPCS: 99212 ==

== ENCOUNTER 2023-06-12 11:27 | Outpatient (AMB) | payer OTHER, SELFPAY ==
--- NOTE | 2023-06-12 11:28 | MHC.OFFVISWM ---
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 Presents for 2 month post op visit. Weight today is 171.4 pounds, with a BMI of 30.4. There has been a 59.6 pound weight loss,(initial weight 231 pounds) since starting the program on 12/30/2022 reflecting a 25.8 % total body weight loss and a weight loss of 35.1 pounds since surgery (operative weight 206.5 pounds) reflecting a 16.9 % TBWL since surgery. No complaints of nausea, emesis, abdominal pain or reflux. Reports infrequent but normal bowel movements every 7 days and uses stool softeners regularly. She states that she has been communicating with Dr Yap and Isopure is now 1 full scoop. Constipation is better Taking Unjury MVI Present meal plan includes: Fulfil protein bars, 8-10 Isopure shake 1/2 scoop in 8 oz 11-1 bar at 2-4 another shake 5-7 another bar at 8-10 40 additional oz water Exercise routine includes: PF, treadmill/elliptical/weights, 3 x per week, 300-350 calories. PFSH Medical History BMI 36.0-36.9,adult DVT (deep venous thrombosis) History of postoperative nausea and vomiting GERD (gastroesophageal reflux disease) History of headache Back pain Asthma Pulmonary embolism Surgical History History of tubal ligation History of right hip replacement Hx of section Family History Mother No problems noted. Father No problems noted. Sister Thyroid disease Brother No problems noted. Brother No problems noted. Son No problems noted. Son No problems noted. Daughter No problems noted. Daughter Epilepsy Social History Household Members: Spouse and Children Housing: House Are you a primary client care manager to a significant other at home: No Do you presently have visiting nurse or other home services: No Alcohol intake: never Patient Tobacco Use Status: Never used Tobacco service: No Physical Exam Const General: healthy appearing and no acute distress Resp Effort & Inspection: normal respiratory effort Auscultation: clear to auscultation bilaterally Cardio Rate: regular rate Rhythm: regular rhythm GI Auscultation: normal bowel sounds Extrem General: Yes normal to inspection Assessment & Plan Assessment & Plan (1) Obesity: Code(s): E66.9 - Obesity, unspecified Plan: Blood pressure was slightly soft today although no complaints of lightheadedness or dizziness. Patient wishes to continue her current meal plan. She was enquiring about exercises for biceps and triceps. She was given exercise recommendations and encouraged to watch YouTube videos for specific technique as well as to ask 1 of the trainers at the gym. She states she will do so. We will have her return to the office in approximately 3 weeks' time with the understanding that she will text sooner with any questions or concerns. Coding Level of Care Code Global (61014) Diagnoses Obesity E66.9
[2023-06-12 11:36] VITALS: BP 100/53; PULSE 70; TEMP 35.8; O2SAT 100; BMI 29.9
== END 2023-06-12 12:00 | disposition home or self-care (01) ==
PROVIDERS: PCP Internal Medicine; Visit Provider Physician Assistant Surgical
DX: E66.9 Obesity, unspecified (principal); Z68.29 Body mass index [BMI] 29.0-29.9, adult; Z90.3 Acquired absence of stomach [part of]; Z98.84 Bariatric surgery status
CPT/HCPCS: 99024

== ENCOUNTER → 2023-06-12 11:27 | Outpatient (BNVA) | payer SELFPAY | PROVIDERS: PCP Internal Medicine; Visit Provider Physician Assistant Surgical | DX: E66.9 Obesity, unspecified (principal); Z68.29 Body mass index [BMI] 29.0-29.9, adult; Z98.84 Bariatric surgery status | CPT/HCPCS: 99212 ==

== ENCOUNTER 2023-07-01 16:16 | Outpatient (AMB) | payer SELFPAY ==
--- NOTE | 2023-07-01 16:14 | MHC.OFFVISWM ---
Intake VS Expanded 07/01/23 16:16 Height 5 ft 3 in Weight 167 lb 6.4 oz BMI 29.7 Intake Visit Reasons: TELEPHONE PO LSG 04/07/23 Cooler Operator Required: No Allergies No Known Allergies Allergy (Verified 05/08/23 11:38) Medication List - Last Reconciled 07/01/23 by ALMA Everett albuterol sulfate 90 mcg/actuation 2 puffs inhalation Q6H PRN pantoprazole 40 mg PO DAILY sennosides (senna) 17.2 mg (2 x 8.6 mg) PO BEDTIME PRN 90 days sucralfate 10 mL PO BID HPI HPI Comments History of Present Illness Details his?a?38?yo female who is s/p LSG without hiatal hernia repair on?04/07/2023. Presents for 2.5 month post op visit. Weight today is 167.4 pounds, with a BMI of 29.7. There has been a 63.6 pound weight loss,(initial weight 231 pounds) since starting the program on 12/30/2022 reflecting a 27.5 % total body weight loss and a weight loss of 39.1 pounds since surgery (operative weight 206.5 pounds) reflecting a 18.9 % TBWL since surgery. No complaints of nausea, emesis, abdominal pain or reflux. Reports infrequent but normal bowel movements every 7 days and uses stool softeners regularly. She states that she is doing well. Constipation is better, wants to start food Taking Unjury MVI Present meal plan includes: Fulfil protein bars, 9-11 Isopure shake 1 scoop in 8 oz water at 1-3pm bar at 6-8 40-50 additional oz water Exercise routine includes: HIIT/cardio/weights 5 days per week (started last week) PF treadmill/rowing machine 3 days per week. [facility] Medical History BMI 36.0-36.9,adult DVT (deep venous thrombosis) History of postoperative nausea and vomiting GERD (gastroesophageal reflux disease) History of headache Back pain Asthma Pulmonary embolism Surgical History History of tubal ligation History of right hip replacement Hx of section Family History Mother No problems noted. Father No problems noted. Sister Thyroid disease Brother No problems noted. Brother No problems noted. Son No problems noted. Son No problems noted. Daughter No problems noted. Daughter Epilepsy Social History Household Members: Spouse and Children Housing: House Are you a primary director long term care to a significant other at home: No Do you presently have visiting nurse or other home services: No Alcohol intake: never Patient Tobacco Use Status: Never used Tobacco service: No Assessment & Plan Assessment & Plan (1) Overweight (BMI 25.0-29.9): Code(s): E66.3 - Overweight Plan: Patient states she wants to begin to incorporate food. We will change her meal plan. Isopure powder 1 scoop in 10 oz of water from 9-11 a.m. Fulfill protein bar from 1-3 p.m. Meal at 18:00, 4 forks of protein and 4 forks of cooked vegetables, starting with white flesh fish She has begun an intensive interval training program 5 days a week. While we can not accurately assess calories burned, this is certainly an improvement over using the treadmill 3 days a week at [employer]. Return to clinic 3 weeks. Encouraged to continue to communicate. She states that she sends her weight to Dr. Pollard weekly. Telehealth Telehealth Location of provider rendering services: practice address Location of patient: other Patient Identification confirmed using: Name, : Yes Telehealth method: voice only Patient verbally consented to treatment: Yes Patient verbally consented to billing insurance company: Yes Patient informed of any privacy concerns related to visit: Yes Minutes spent on Phone/Video with Pt.: 12 Coding Level of Care Code Global (42130) Diagnoses Overweight (BMI 25.0-29.9) E66.3
[2023-07-01 16:16] VITALS: BMI 29.7
== END 2023-07-01 16:34 | disposition home or self-care (01) ==
LOC: HO.HBS 16:16
PROVIDERS: PCP Internal Medicine; Visit Provider Physician Assistant Surgical
DX: E66.3 Overweight (principal)
CPT/HCPCS: 99024

== ENCOUNTER → 2023-07-01 16:16 | Outpatient (BNVA) | payer SELFPAY | PROVIDERS: PCP Internal Medicine; Visit Provider Physician Assistant Surgical | DX: E66.3 Overweight (principal); Z68.29 Body mass index [BMI] 29.0-29.9, adult; Z98.84 Bariatric surgery status | CPT/HCPCS: 99212 ==

== ENCOUNTER 2023-08-04 12:52 | Outpatient (AMB) | payer SELFPAY ==
--- NOTE | 2023-08-04 12:33 | MHC.OFFVISWM ---
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 Presents for 4 month post op visit. Weight today is 157.4 pounds, with a BMI of 27.9. There has been a 73.6 pound weight loss,(initial weight 231 pounds) since starting the program on 12/30/2022 reflecting a 31.8 % total body weight loss and a weight loss of 49.1 pounds since surgery (operative weight 206.5 pounds) reflecting a 23.7 % TBWL since surgery. No complaints of nausea, emesis, abdominal pain or reflux. Reports infrequent but normal bowel movements every 7 days and uses stool softeners regularly. She states that she is doing well. She was sick over the last 3 weeks. She was able to go on vacation. She feels good with her weight loss. She did not start the below meal plan because her daughter was in the hospital. Taking Unjury MVI Present meal plan includes: Isopure powder 1 scoop in 10 oz of water from 9-11 a.m. Fulfill protein bar from 1-3 p.m. Meal at 6, 4 forks of protein and 4 forks of cooked vegetables 60 oz water Exercise routine includes: no exercise in the last 3 weeks due to going to the hospital for her daughter [facility] Medical History BMI 36.0-36.9,adult DVT (deep venous thrombosis) History of postoperative nausea and vomiting GERD (gastroesophageal reflux disease) History of headache Back pain Asthma Pulmonary embolism Surgical History History of tubal ligation History of right hip replacement Hx of section Family History Mother No problems noted. Father No problems noted. Sister Thyroid disease Brother No problems noted. Brother No problems noted. Son No problems noted. Son No problems noted. Daughter No problems noted. Daughter Epilepsy Social History Household Members: Spouse and Children Housing: House Are you a primary career information specialist to a significant other at home: No Do you presently have visiting nurse or other home services: No Alcohol intake: never Patient Tobacco Use Status: Never used Tobacco service: No Assessment & Plan Assessment & Plan (1) S/P laparoscopic sleeve gastrectomy: Code(s): Z98.84 - Bariatric surgery status Plan: Overall, the patient has done well. She has had multiple illnesses in her family including hospitalization of her daughter over the last 3 weeks and she did not start the food portion of her meal plan. She intends to start this now and she will follow the meal plan as listed above. She will return to the gym. She will text with any questions or concerns as well as sending her weight weekly. Additionally, we will have her return to the office in approximately 1 month. Telehealth Telehealth Location of provider rendering services: practice address Location of patient: address on file Patient Identification confirmed using: Name, : Yes Telehealth method: voice only Patient verbally consented to treatment: Yes Patient verbally consented to billing insurance company: Yes Patient informed of any privacy concerns related to visit: Yes Minutes spent on Phone/Video with Pt.: 12 Coding Level of Care Code Tele Est Pt Level 3 (50074) Diagnoses S/P laparoscopic sleeve gastrectomy Z98.84 Time Spent (min) 15
[2023-08-04 12:36] VITALS: BMI 27.9
== END 2023-08-04 12:59 | disposition home or self-care (01) ==
LOC: HO.HBS 12:52
PROVIDERS: PCP Internal Medicine; Visit Provider Physician Assistant Surgical
DX: E66.3 Overweight (principal); Z68.27 Body mass index [BMI] 27.0-27.9, adult; Z90.3 Acquired absence of stomach [part of]; Z98.84 Bariatric surgery status
CPT/HCPCS: 99442

== ENCOUNTER → 2023-08-04 12:52 | Outpatient (BNVA) | payer SELFPAY | PROVIDERS: PCP Internal Medicine; Visit Provider Physician Assistant Surgical ==